=== PATIENT | female | born 1980 | race Caucasian/White ===

== ENCOUNTER → 2020-03-26 15:20 | Outpatient (BNVA) | payer OTHER, SELFPAY | PROVIDERS: PCP Internal Medicine; Visit Provider Internal Medicine Pulmonary Disease | DX: Z76.89 Persons encountering health services in other specified circumstances (principal) | CPT/HCPCS: Q3014 ==

== ENCOUNTER 2020-05-30 15:06 | Outpatient (REF) | payer OTHER, SELFPAY ==
[2020-05-30 16:33] LABS: MANUAL DIFF FLAG NO
[2020-05-30 16:39] LABS: Basophils Percent Auto 0.5 % (0-2); Eosinophils Absolute Auto 0.1 X10*3/uL (0.0-0.4); Eosinophils Percent Auto 1.6 % (0-4); Hematocrit 39.4 % (37-47); Hemoglobin 13.6 g/dl (12.0-16.0); Imm Gran Abs Auto 0.03 X10*3/uL (0.00-0.03); Imm Gran Pct Auto 0.4 % (0.0-0.4); Lymphocytes Absolute Auto 2.2 X10*3/uL (1.2-4.9); Lymphocytes Percent Auto 27.7 % (20-40); Mean Corpuscular HGB Conc 34.5 g/dl (31.0-35.0); Mean Corpuscular Hemoglobin 32.2 pg (27.0-33.0); Mean Corpuscular Volume 93.4 fL (80-98); Mean Platelet Volume 10.8 fL (9.4-12.3); Monocytes Absolute Auto 0.8 X10*3/uL (0.1-1.2); Neutrophils Absolute Auto 4.8 X10*3/uL (2.0-8.3); Neutrophils Percent Auto 59.8 % (45-73); Platelet Count 226 X10*3/uL (160-400); Red Blood Count 4.22 X10*6/uL (4.20-5.50); Red Cell Distribution Width 12.2 % (11.0-16.0)
== END 2020-05-30 15:07 | disposition home or self-care (01) ==
LOC: HO.LAB 15:06
PROVIDERS: PCP Internal Medicine; Visit Provider Internal Medicine Pulmonary Disease
DX: J45.991 Cough variant asthma (principal); Z79.899 Other long term (current) drug therapy
CPT/HCPCS: 36415; 82785; 85025; 86003; 99212

== ENCOUNTER 2020-06-07 12:34 | Emergency (ER) | payer OTHER, SELFPAY ==
[2020-06-07 12:44] VITALS: BP 139/86; PULSE 78; RESP 12; TEMP 36.8; O2SAT 97; BMI 30.9
--- NOTE | 2020-06-07 13:44 | ED.EXTPRO ---
HPI - Extremity Problem General Chief complaint: Extremity Problem Stated complaint: left arm pain Time Seen by Provider: 06/07/20 13:26 Source: patient Mode of arrival: ambulatory Limitations: no limitations History of Present Illness HPI Narrative: 40 y/o female presenting with left arm pain for the last 10 days. She reports it started after sleeping funny on it and woke up with the pain. It started in her middle forearm and goes up to her biceps. Its described as dull and annoying. She reports falling on ice 5 days ago and it made the pain worse. She thinks she may have torn a muscle. She reports some mild elbow pain but has full ROM. No bruising on her arm and no deformity. No numbness, tingling or weakness. MD Complaint: extremity pain Onset (ago): day(s) (10) Pain Consistency: constant Location: left Severity scale (1-10): 9 Quality: aching and dull Radiation: none Relieving factors: nothing Exacerbating factors: range of motion and palpation Associated symptoms: denies other symptoms Related Data Home Medications Medication Instructions Recorded Confirmed albuterol sulfate 90 mcg/actuation 1 puff INHALATION Q4H PRN g 02/22/20 03/15/20 aerosol inhaler Previous Rx's Medication Instructions Recorded codeine 10 mg-guaifenesin 100 mg/5 5 ml PO Q6H PRN 10 Days #120 ml 03/26/ mL oral liquid fluticasone propionate 220 1 puff INHALATION BID 30 Days #1 ea 03/26/ mcg/actuation HFA aerosol inhaler omeprazole 20 mg capsule,delayed 20 mg PO DAILY #90 cap 05/24/20 release prednisone 10 mg tablet See Rx Instructions PO DAILY 15 06/04/20 Days #50 tab Allergies Allergy/AdvReac Type Severity Reaction Status Date / Time mold [MOLD] Allergy Intermediate HIVES Verified 06/07/20 12:44 milk [MILK] Allergy Unknown UNKNOWN Verified 06/07/20 12:44 Review of Systems Review of Systems: Constitutional: No Fever, No Chills ENT/Mouth: No sore throat, No Rhinorrhea, No Swallowing Difficulty Cardiovascular: No Chest Pain, No SOB Respiratory: + Cough, No Sputum Gastrointestinal: No Nausea, No Vomiting Musculoskeletal: + joint pain, + Myalgias Skin: No Skin Lesions, No rash Neuro: No Weakness, No Numbness, No Dizziness, No Headache Heme/Lymph: No Bruising PMFSH Past Medical History Attestation statement: The following information was validated with the patient. Medical History Heart burn Surgical History History of open reduction and internal fixation (ORIF) procedure S/P hardware removal Family History Family History Brother Depression Social History Social History (Updated 03/26/20 @ 15:21 by Danni Morris MA) Smoking Status: Never smoker Advance Directives: Yes Advance Directives Information Provided: Yes Advance Directives on File: No Physical Exam Vital Signs: Vital Signs: Last Vital Signs Temp 98.2 F 06/07/20 12:44 Pulse 78 06/07/20 12:44 Resp 12 06/07/20 12:44 BP 139/86 06/07/20 12:44 Pulse Ox 97 06/07/20 12:44 Body Mass Index 30.9 Appearance: Alert. Oriented X3. No acute distress. HEENT: normal inspection CVS: Normal heart rate and rhythm. Pulses normal. Respiratory: No respiratory distress. Skin: Skin warm and dry. Normal skin color. Normal skin turgor. No rashes. Extremities: normal inspection of bilateral arms. left arm with tenderness of dorsal muscle compartments, soft. tenderness of central bicep. no ecchymosis, no palpable cords or masses. Full ROM and normal strength bilaterally. No point tenderness of the elbow. Normal shoulder ROM. Neuro: Oriented X 3. No motor deficit. No sensory deficit. Steady gait Course Course Course Narrative: 40 y/o female presenting with left arm pain. Seems muscular in nature with tenderness of muscle compartments and worsening pain with movement. She has no evidence of muscle or tendon rupture on exam. She has not taken anything for pain. She is refusing an x-ray at this time, saying nothing is wrong with the bones. We discussed management of muscle strains and she would like to start a trial of NSAID and wear a sling for comfort. Once sling applied she felt much better. She will follow up with her PCP next week. instructed to return to ER if symptoms worsen. Critical Care Time Critical Care Time Critical Care Time: No Discharge Plan Discharge Clinical Impression: Arm pain, left Patient Disposition: Home, Self-Care Instructions: Arm Pain (ED) Additional Instructions: Wear the sling as needed for comfort. No lifting with your left arm. Take the prescribed anti-inflammatory medication two times per day. Take Tylenol 975 mg every 6 hours. Use ice several times per day for the next 48 hours then switch to heat. Follow up with your doctor next week. If no improvement in the pain or if symptoms worsen come back to the ER for further evaluation. Prescriptions: No Action omeprazole 20 mg capsule,delayed release(DR/EC) 20 mg PO DAILY Qty: 90 RF: 0 prednisone 10 mg tablet See Rx Instructions PO DAILY 15 Days Qty: 50 RF: 0 albuterol sulfate 90 mcg/actuation HFA aerosol inhaler 1 puff inhalation Q4H PRNRF: 0 Flovent HFA 220 mcg/actuation HFA aerosol inhaler 1 puff inhalation BID 30 Days Qty: 1 RF: 6 codeine-guaifenesin 10-100 mg/5 mL liquid 5 ml PO Q6H PRN (Reason: cold symptoms) 10 Days Qty: 120 RF: 0 Interventions: ED Discharge Assessment Last Done: 06/07/20 14:03 Discharge Date/Time: 06/07/20 14:03
== END 2020-06-07 14:03 | disposition home or self-care (01) ==
PROVIDERS: Emergency Provider Emergency Medicine; PCP Internal Medicine
DX: M79.602 Pain in left arm (principal)
CPT/HCPCS: 99283

== ENCOUNTER → 2020-07-15 13:10 | Outpatient (BNVA) | payer OTHER, SELFPAY | PROVIDERS: PCP Internal Medicine; Visit Provider Physician Assistant | DX: Z13.89 Encounter for screening for other disorder (principal) | CPT/HCPCS: Q3014 ==

== ENCOUNTER 2020-07-29 12:14 | Outpatient (REF) | payer OTHER, SELFPAY ==
--- NOTE | ~2020-07-29 | XR_ITS ---
EXAMINATION: WRIST 3 VIEWS, LEFT CLINICAL INFORMATION: Left wrist pain. COMPARISON: None. TECHNIQUE: AP, lateral, oblique views of the left wrist are provided. FINDINGS: There are no fractures or dislocations. There is no displacement of the pronator fat pad. The proximal carpal row is intact. XR/XR wrist LT min 3V IMPRESSION: Unremarkable left wrist radiographs.
== END 2020-07-29 12:15 | disposition home or self-care (01) ==
LOC: HO.HMGCX 12:14
PROVIDERS: PCP Internal Medicine; Visit Provider Hospitalist
DX: M25.532 Pain in left wrist (principal)
CPT/HCPCS: 73110

== ENCOUNTER 2020-08-27 15:05 | Outpatient (REF) | payer OTHER, SELFPAY ==
--- NOTE | ~2020-08-27 | XR_ITS ---
EXAMINATION: LEFT ELBOW AND LEFT HAND X-RAY CLINICAL INFORMATION: Pain COMPARISON: None TECHNIQUE: 3 views of the left elbow and 3 views of the left hand FINDINGS: Left elbow: Bone alignment is normal. No fracture or dislocation is seen. Joint spaces are normal. There is no joint effusion. Left hand: Bone alignment is normal. No fracture or dislocation is seen. Joint spaces and soft tissues are normal. XR/XR hand LT min 3V IMPRESSION: Unremarkable left elbow and left hand.
--- NOTE | ~2020-08-27 | XR_ITS ---
EXAMINATION: LEFT ELBOW AND LEFT HAND X-RAY CLINICAL INFORMATION: Pain COMPARISON: None TECHNIQUE: 3 views of the left elbow and 3 views of the left hand FINDINGS: Left elbow: Bone alignment is normal. No fracture or dislocation is seen. Joint spaces are normal. There is no joint effusion. Left hand: Bone alignment is normal. No fracture or dislocation is seen. Joint spaces and soft tissues are normal. XR/XR elbow LT min 3V IMPRESSION: Unremarkable left elbow and left hand.
== END 2020-08-27 15:06 | disposition home or self-care (01) ==
LOC: HO.HOSX 15:05
PROVIDERS: PCP Internal Medicine; Visit Provider Orthopaedic Surgery
DX: M79.642 Pain in left hand (principal); M25.532 Pain in left wrist; M25.522 Pain in left elbow
CPT/HCPCS: 73080; 73130; 99202

== ENCOUNTER → 2021-04-10 14:59 | Outpatient (BNVA) | payer OTHER, SELFPAY | PROVIDERS: PCP Internal Medicine; Visit Provider Internal Medicine Pulmonary Disease | DX: J45.909 Unspecified asthma, uncomplicated (principal); R05.9 Cough, unspecified; Z91.19 Patient's noncompliance with other medical treatment and regimen | CPT/HCPCS: 99212 ==

== ENCOUNTER → 2021-05-07 15:08 | Outpatient (BNVA) | payer OTHER, SELFPAY | PROVIDERS: PCP Internal Medicine; Visit Provider Internal Medicine Pulmonary Disease | DX: J45.901 Unspecified asthma with (acute) exacerbation (principal); R05.9 Cough, unspecified; Z79.899 Other long term (current) drug therapy | CPT/HCPCS: 99212 ==

== ENCOUNTER 2021-05-28 13:55 | Outpatient (REF) | payer OTHER, SELFPAY ==
--- NOTE | ~2021-05-28 | XR_ITS ---
EXAMINATION: XR chest 2V CLINICAL INFORMATION: Reason for Exam R05 - Cough COMPARISON: Chest radiograph 11/12/2019 TECHNIQUE: 2 views of the chest XR/XR chest 2V FINDINGS/IMPRESSION: Clear lungs. No pneumothorax. No pleural effusion. Normal cardiomediastinal silhouette.
== END 2021-05-28 13:56 | disposition home or self-care (01) ==
LOC: HO.XRAY 13:55
PROVIDERS: Visit Provider Internal Medicine Pulmonary Disease
DX: R05.9 Cough, unspecified (principal)
CPT/HCPCS: 71046

== ENCOUNTER 2021-06-09 15:26 | Outpatient (REF) | payer OTHER, SELFPAY ==
--- NOTE | ~2021-06-09 | CT_ITS ---
EXAMINATION: CT CHEST WITHOUT CONTRAST CLINICAL INFORMATION: Cough COMPARISON: Previous chest x-ray most recent May 2021 TECHNIQUE: Multidetector volumetric CT imaging of the chest was done. Axial MIP volume rendering provided. Sagittal and coronal reformatted images were obtained. This CT examination was performed using dose optimization techniques as appropriate, variously including the following: *Automated exposure control *Adjustment of mA and/or kV according to patient size (this includes techniques or standardized protocols for targeted exams where dose is matched to indication/reason for exam; i.e. extremities or head) *Use of iterative reconstruction technique DLP: 181 mGy-cm FINDINGS: CURRICULUM DEVELOPER: Unremarkable LUNGS: There is a 3 mm peripheral or subpleural left lower lobe nodule axial image 335 series 8. The lungs are otherwise clear. No endobronchial or endotracheal lesion. No evidence of emphysema interstitial lung disease or bronchiectasis. MEDIASTINUM: The mediastinum is normal. PLEURA: There is no pleural effusion. No pleural mass or thickening. AXILLA: No lymphadenopathy. There is a small nodule in subcutaneous fat over the left upper back and shoulder measuring axial image 2 series 3. UPPER ABDOMEN: Unremarkable. OSSEOUS STRUCTURES: Unremarkable. CT/CT chest wo con IMPRESSION: 3 mm left lower lobe nodule. According to the UPDATED 2017 Fleischner Society recommendations, the advised follow-up imaging for less than 6 mm nodule: Low risk, no chest CT follow-up and high risk, optional chest CT follow-up in one year. Fleischner guidelines were followed.
== END 2021-06-09 15:27 | disposition home or self-care (01) ==
LOC: HO.CT 15:26
PROVIDERS: Visit Provider Internal Medicine Pulmonary Disease
DX: R05.9 Cough, unspecified (principal)
CPT/HCPCS: 71250

== ENCOUNTER → 2021-08-21 15:36 | Outpatient (BNVA) | payer OTHER, SELFPAY | PROVIDERS: PCP Internal Medicine; Visit Provider Internal Medicine Pulmonary Disease | DX: J45.909 Unspecified asthma, uncomplicated (principal); R05.9 Cough, unspecified | CPT/HCPCS: Q3014 ==

== ENCOUNTER 2021-12-03 17:29 | Emergency (ER) | payer OTHER, SELFPAY ==
[2021-12-03 18:03] VITALS: BP 145/92; PULSE 86; RESP 18; TEMP 36.9; O2SAT 98; BMI 29.2
--- NOTE | 2021-12-03 18:35 | ED.GENADULT ---
HPI - General Adult General Chief complaint: Skin/Abscess/Foreign Body Stated complaint: back surgery 11/26 ? incision infection ,drng Time Seen by Provider: 12/03/21 18:35 Source: patient Mode of arrival: ambulatory Limitations: no limitations History of Present Illness HPI narrative: Patient is a 41 year old female presenting to the emergency department today with a surgical incision infection. Patient states that she had a mole removed from her lower back by [facility] a couple days ago and now it is hurting and is leaking. Patient states that she doesn't have follow up with the original surgeon until 12/11. Patient denies any dizziness, lightheadedness, abdominal pain, nausea, vomiting, fever, chills, blurry vision, double vision, loss of vision, chest pain, difficulty breathing, shortness of breath, back pain, night sweats, pain with urination, increased urinary frequency, increased urinary urgency, blood in her urine or stool, syncope or a near syncopal episode, bowel incontinence, bladder incontinence, bowel retention, bladder retention, or any other complaints at this time. Onset (ago): day(s) Location: back Radiation: non-radiation Severity: mild Severity scale (1-10): 2 Quality: aching and constant Pain Consistency: constant Relieving factors: none Exacerbating factors: none Associated symptoms: denies other symptoms Treatments prior to arrival: none Related Data Previous Rx's Medication Instructions Recorded ibuprofen 600 mg tablet 600 mg PO TID PRN pain #30 tabs 07/27/20 fluticasone furoate 200 1 inh inhalation DAILY 30 days #1 04/10/21 mcg-vilanterol 25 mcg/dose ea inhalation powder (Breo Ellipta) albuterol sulfate 90 mcg/actuation 2 puff inhalation Q4H PRN 05/07/21 aerosol inhaler shortness of breath or wheezing 30 days #1 ea omeprazole 10 mg capsule,delayed 10 mg PO DAILY 30 days #30 caps 11/19/21 release cephalexin 500 mg capsule 500 mg PO Q6H 7 days #28 caps 12/03/21 Allergies Allergy/AdvReac Type Severity Reaction Status Date / Time mold [MOLD] Allergy Intermediate HIVES Verified 08/21/21 15:37 milk [MILK] Allergy Unknown UNKNOWN Verified 08/21/21 15:37 Review of Systems Constitutional: Constitutional: Reports no additional constitutional complaints, Denies chills, Denies fever(s) and Denies night sweats Eyes: Eyes: Reports no additional eye complaints, Denies blurry vision, Denies change in vision, Denies diplopia, Denies eye discharge, Denies loss of vision and Denies eye pain ENT: Denies dizziness Cardiovascular: Cardiovascular: Reports no additional cardiovascular complaints, Denies chest pain, Denies lightheadedness, Denies Loss of Consciousness and Denies dyspnea Respiratory: Respiratory: Reports no additional respiratory complaints and Denies dyspnea Gastrointestinal: Gastrointestinal: Reports no additional gastrointestinal complaints, Denies abdominal pain, Denies melena, Denies hematochezia, Denies change in bowel habits and Denies change in stool character Genitourinary: Genitourinary: Denies hematuria, Denies urinary frequency, Denies dysuria, Denies urinary incontinence, Denies urinary hesitancy and Denies urinary urgency Musculoskeletal: Musculoskeletal: Reports no additional musculoskeletal complaints, Denies numbness and Denies tingling Integumentary/Breasts: Comments: leaking incision site on low back Neurologic: Denies dizziness, Denies loss of vision, Denies numbness and Denies tingling Psychiatric: Psychiatric: Reports no additional psychiatric complaints Endocrine: Endocrine: Reports no additional endocrine complaints Hematologic/Lymphatic: Hematologic/Lymphatic: Reports no additional hematologic/lymphatic complaints Allergic/Immunologic: Allergic/Immunologic: Reports no additional allergic/immunologic complaints PMF Past Medical History Attestation statement: The following information was validated with the patient. Source: old records reviewed Medical History Heart burn Surgical History History of open reduction and internal fixation (ORIF) procedure S/P hardware removal Family History Family History Brother Depression Social History Social History Household Members: None Housing: Apartment Alcohol intake: current Alcohol intake frequency: a few times a month Patient Tobacco Use Status: Never used Tobacco Second Hand Smoke Exposure: Yes Advance Directives: No Advance Directives Information Provided: No Current occupational status: disabled Physical Exam ED Vital Signs: Vital Signs - 24 hr 12/03/21 18:03 Temperature 98.4 F Pulse Rate 86 Respiratory Rate 18 Blood Pressure 145/92 H Pulse Oximetry 98 Oxygen Delivery Method Room Air BMI result Body Mass Index 29.2 Const General: cooperative, no acute distress, alert and awake Nutritional Appearance: well nourished Orientation/consciousness: patient oriented x3 Limitations: no limitations HENMT Head: Yes normal to inspection and Yes atraumatic Ears: hearing grossly normal bilaterally and external ears normal General nose exam: Normal external nose present, no nasal discharge noted and no epistaxis Face and sinus: Yes normal facial exam, No abrasion and No laceration Mouth: Normal oral and palatal mucosa present, no drooling and no muffled voice Eyes General: appearance normal, both eyes and all related structures Periorbital: periorbital findings normal Eyelids: Yes eyelids normal Conjunctivae: conjunctivae normal Pupils: Equal, round and reactive pupils present EOM: EOMs intact bilaterally Neck Neck: Yes normal visual inspection, Yes full ROM and Yes no lymphadenopathy Chest Chest palpation & inspection: normal inspection of the chest Resp Effort & Inspection: normal respiratory effort and able to speak in complete sentences Auscultation: clear to auscultation bilaterally Cardio Rate: regular rate Rhythm: regular rhythm GI Inspection: Yes normal to inspection Back/Spine/Pelvis Other: present on low back: non-healing surgical incision with 1cm gaping area on the medial aspect and 0.25cm gaping area on the lateral aspect, surrounding erythema and warmth, no discharge noted Neuro General: patient oriented x3 and moves all extremities Cranial nerves: Yes Equal, round and reactive pupils present Cognition (Neuro): normal cognition Motor exam (neuro): 5/5 motor strength present throughout Sensory Exam: Normal double simultaneous stimulation for sensation Coordination: [id number] test normal Extrem General: Yes normal to inspection, Yes full ROM and Yes capillary refill normal Psych Appearance: grossly normal Mental Status: mental status grossly normal Affect: normal affect Attitude: cooperative Thought process: Normal thought process present Thought content: Normal thought content present Insight: Good insight present (Psych) Medical Decision Making MDM Narrative Medical decision making narrative: Patient is a 41 year old female presenting to the emergency department today with an infected surgical incision. Patient's physical exam was as noted previously in this chart with a non-healing surgical incision to the patient's low back with a 1cm gaping area to the medial aspect of the incision and a 0.25 gaping area to the lateral aspect of the patient's incision. There was surrounding erythema and warmth of the incision but no drainage present. I explained my physical exam findings to the patient. I answered all questions asked by the patient. I stressed the importance of the patient taking her medication as prescribed. I stressed the importance of the patient following up with her primary care provider, the provider who performed the initial procedure, and the wound center. I stressed the importance of the patient returning to the emergency department immediately if her symptoms were to worsen or if she were to develop any dizziness, shortness of breath, difficulty breathing, chest pain, blurry vision, loss of vision, nausea, vomiting, abdominal pain, fever, chills, back pain, or any other complaints. Patient verbalized agreement and understanding with this treatment plan and discharge. Differential Diagnosis Differential Diagnosis: cellulitis, surgical incision infection Medical Records Medical records reviewed: Yes I reviewed the patient's medical records. Discharge Plan Discharge Clinical Impression: Cellulitis Patient Disposition: Home, Self-Care Instructions: Cellulitis (ED) Additional Instructions: Follow up with your primary care provider, the provider who performed the procedure, and the wound center. Return to the emergency department immediately if your symptoms worsen or if you develop any dizziness, shortness of breath, difficulty breathing, chest pain, blurry vision, loss of vision, nausea, vomiting, abdominal pain, fever, chills, back pain, or any other complaints. Prescriptions: New cephalexin 500 mg capsule 500 mg PO Q6H 7 Days Qty: 28 0RF No Action omeprazole 10 mg capsule,delayed release(DR/EC) 10 mg PO DAILY 30 Days Qty: 30 0RF ibuprofen 600 mg tablet 600 mg PO TID PRN (Reason: pain) Qty: 30 0RF Breo Ellipta 200-25 mcg/dose blister with device 1 inh inhalation DAILY 30 Days Qty: 1 6RF albuterol sulfate 90 mcg/actuation HFA aerosol inhaler 2 puff inhalation Q4H PRN (Reason: shortness of breath or wheezing) 30 Days Qty: 1 6RF [place] [facility] [place] [facility] [place] (Call to establish and follow up with a primary care provider. If you already have a primary care provider, please call and follow up with them. ) [facility] [place] [facility] [place] (Call to establish and follow up with a primary care provider. If you already have a primary care provider, please call and follow up with them. ) [facility] [place] [facility] [place]] (Call to establish and follow up with a primary care provider. If you already have a primary care provider, please call and follow up with them. ) [facility] [place] [facility] [place]] (Call to establish and follow up with the wound care center. ) Print Language: [place]
== END 2021-12-03 19:25 | disposition home or self-care (01) ==
PROVIDERS: Emergency Provider Emergency Medicine
DX: L03.312 Cellulitis of back [any part except buttock and flank] (principal); M54.50 Low back pain, unspecified; Z79.899 Other long term (current) drug therapy
CPT/HCPCS: 99281

== ENCOUNTER → 2022-02-09 14:28 | Outpatient (BNVA) | payer OTHER, SELFPAY | PROVIDERS: PCP Internal Medicine; Visit Provider Internal Medicine Pulmonary Disease | DX: J45.909 Unspecified asthma, uncomplicated (principal); R05.9 Cough, unspecified | CPT/HCPCS: Q3014 ==

== ENCOUNTER → 2022-03-05 13:04 | Outpatient (BNVA) | payer OTHER, SELFPAY | PROVIDERS: PCP Internal Medicine; Visit Provider Internal Medicine Pulmonary Disease | DX: J45.998 Other asthma (principal); R05.9 Cough, unspecified | CPT/HCPCS: 99212 ==

== ENCOUNTER → 2022-03-10 09:01 | Outpatient (BNVA) | payer OTHER, SELFPAY | PROVIDERS: PCP Internal Medicine; Visit Provider Internal Medicine Pulmonary Disease | DX: J45.909 Unspecified asthma, uncomplicated (principal); R05.8 Other specified cough | CPT/HCPCS: Q3014 ==

== ENCOUNTER → 2022-06-30 15:32 | Outpatient (BNVA) | payer OTHER, SELFPAY | PROVIDERS: PCP Internal Medicine; Visit Provider Internal Medicine Pulmonary Disease | DX: J45.991 Cough variant asthma (principal); K21.9 Gastro-esophageal reflux disease without esophagitis; Z79.52 Long term (current) use of systemic steroids | CPT/HCPCS: 99212 ==

== ENCOUNTER → 2022-07-28 14:24 | Outpatient (BNVA) | payer OTHER, SELFPAY | PROVIDERS: PCP Internal Medicine; Visit Provider Internal Medicine Pulmonary Disease | DX: J45.909 Unspecified asthma, uncomplicated (principal); R05.3 Chronic cough | CPT/HCPCS: Q3014 ==

== ENCOUNTER 2022-12-09 11:09 | Outpatient (AMB) | payer OTHER, SELFPAY ==
--- NOTE | 2022-12-09 11:10 | MHC.OFFVIS ---
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 Patient states that her GERD symptoms have been well controlled on per. At her environmental allergies have not bothered her over last few months, thus she did not use Aixa, Benadryl, Flonase. Her asthma symptoms also well controlled on Breo, Combivent, and as needed albuterol MDI/DuoNeb. She denies recent exacerbations. [facility] Medical History Heart burn Surgical History History of open reduction and internal fixation (ORIF) procedure S/P hardware removal Family History Brother Depression Social History Household Members: None Housing: Apartment Alcohol intake: current Alcohol intake frequency: a few times a month Patient Tobacco Use Status: Never used Tobacco e-Cigarette/Vaping Use: Never Used Second Hand Smoke Exposure: Yes service: No Current occupational status: disabled Cognitive needs: No Hearing needs: No Vision needs: No Review of Systems Const Denies daytime sleepiness, Denies excessive sweating, Denies fatigue, Denies fever(s), Denies lethargy, Denies malaise, Denies night sweats, Denies snoring and Denies weight loss Eyes Denies blurry vision and Denies itchy eyes ENT Denies nasal congestion, Denies post nasal drip, Denies sinus pain, Denies sinus pressure and Denies other ( Thrush) Card Denies chest pain, Denies pedal edema, Denies dyspnea, Denies orthopnea and Denies paroxysmal nocturnal dyspnea Resp Denies cough, Denies hemoptysis, Denies excessive phlegm production, Denies dyspnea, Denies snoring and Denies wheezing GI Denies abdominal pain and Denies heartburn Musc Denies myalgias, Denies arthralgias and Denies joint swelling Skin/Breast Denies rash Neuro Denies memory loss and Denies seizure-like activity Psych Denies abnormal sleep pattern, Denies anxiety and Denies memory loss Endo Denies excessive sweating, Denies fatigue and Denies heat intolerance Panfilo/Lymph Denies easy bruising Aller/Immun Denies itchy eyes, Denies seasonal rhinorrhea and Denies wheezing Assessment & Plan Assessment & Plan (1) Asthma: Code(s): J45.909 - Unspecified asthma, uncomplicated Plan: Well controlled on Breo, Combivent, albuterol MDI/duo nebs. Continue current regimen. (2) Allergic rhinitis: Code(s): J30.9 - Allergic rhinitis, unspecified Plan: No recent exacerbations. Continues on as needed Flonase, Aixa, and Benadryl. (3) Chronic cough: Code(s): R05.3 - Chronic cough Plan: No recent exacerbations. (4) GERD (gastroesophageal reflux disease): Code(s): K21.9 - Gastro-esophageal reflux disease without esophagitis Plan: Well controlled on b.i.d. omeprazole 40 mg. Continue current regimen. Coding Level of Care Code Tele Est Pt Level 4 (28305) Diagnoses Asthma J45.909 Allergic rhinitis J30.9 Chronic cough R05.3 GERD (gastroesophageal reflux disease) K21.9 Time Spent (min) 20
== END 2022-12-09 11:29 | disposition home or self-care (01) ==
LOC: HO.HPS 11:10
PROVIDERS: PCP Internal Medicine; Visit Provider Internal Medicine Pulmonary Disease
DX: J45.909 Unspecified asthma, uncomplicated (principal); J30.9 Allergic rhinitis, unspecified; R05.3 Chronic cough; K21.9 Gastro-esophageal reflux disease without esophagitis
CPT/HCPCS: 99213

== ENCOUNTER → 2022-12-09 11:09 | Outpatient (BNVA) | payer OTHER, SELFPAY | PROVIDERS: PCP Internal Medicine; Visit Provider Internal Medicine Pulmonary Disease ==

== ENCOUNTER 2023-02-22 10:04 | Outpatient (AMB) | payer OTHER, SELFPAY ==
[2023-02-22 10:11] VITALS: BP 118/60; PULSE 71; O2SAT 97; BMI 27.5
--- NOTE | 2023-02-22 10:11 | MHC.OFFVIS ---
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 The patient is a 43-year-old woman with a known history of asthma she started developing worsening respiratory symptoms for the last few weeks. She complains of cough usually chest congestion. Although she is no longer bringing up significant amount of mucus. Moderate severity. She has been using her inhaler multiple times a day with only partial resolution of the symptoms. On examination she does have some active coughing. But she is moving good air with diminished breath sounds no significant inspiratory expiratory wheezing appreciated. No rhonchi or crackles appreciated. The patient is requesting codeine cough syrup. At this point under hold off on that because I do not know her medical history. Although outside dextro more fun to see if that provides her some relief. The patient will start a course of antibiotics and prednisone to see if that also provides some relief. I did recommend she call the office if she is no better. [facility] Medical History Heart burn Surgical History History of open reduction and internal fixation (ORIF) procedure S/P hardware removal Family History Brother Depression Social History Household Members: None Housing: Apartment Alcohol intake: current Alcohol intake frequency: a few times a month Patient Tobacco Use Status: Never used Tobacco e-Cigarette/Vaping Use: Never Used Second Hand Smoke Exposure: Yes service: No Current occupational status: disabled Cognitive needs: No Hearing needs: No Vision needs: No Review of Systems Const Denies daytime sleepiness, Denies excessive sweating, Denies fatigue, Denies fever(s), Denies lethargy, Denies malaise, Denies night sweats, Denies snoring and Denies weight loss Eyes Denies blurry vision and Denies itchy eyes ENT Denies nasal congestion, Denies post nasal drip, Denies sinus pain, Denies sinus pressure and Denies other ( Thrush) Card Denies chest pain, Denies pedal edema, Denies dyspnea, Denies orthopnea and Denies paroxysmal nocturnal dyspnea Resp Reports chest congestion, Reports cough, Denies hemoptysis, Denies excessive phlegm production, Denies dyspnea, Denies snoring and Reports wheezing GI Denies abdominal pain and Denies heartburn Musc Denies myalgias, Denies arthralgias and Denies joint swelling Skin/Breast Denies rash Neuro Denies memory loss and Denies seizure-like activity Psych Denies abnormal sleep pattern, Denies anxiety and Denies memory loss Endo Denies excessive sweating, Denies fatigue and Denies heat intolerance Panfilo/Lymph Denies easy bruising Aller/Immun Denies itchy eyes, Denies seasonal rhinorrhea and Reports wheezing Physical Exam Vital Signs: Last Vital Signs Pulse 71 02/22/23 10:11 BP 118/60 02/22/23 10:11 Pulse Ox 97 02/22/23 10:11 Oxygen Delivery Method Room Air 02/22/23 10:11 BMI result Body Mass Index 27.5 Const General: no acute distress and alert Nutritional Appearance: not obese Orientation/consciousness: Other orientation findings ( oriented) HEENT Head: Yes atraumatic Mouth: no other ( thrush) Throat: No postnasal drainage Eyes General: appearance normal, both eyes and all related structures Sclerae: sclerae normal EOM: EOMs intact bilaterally Neck Neck: Yes supple Lymphatic: no lymphadenopathy noted Resp Effort & Inspection: Actively coughing Quality: actively coughing and no use of accessory muscles Auscultation: diminished lung sounds Cardio Rate: regular rate Rhythm: regular rhythm Heart sounds: no gallops, no murmurs and no rubs GI Palpation (GI): Soft to palpation and Other GI palpation findings present ( nontender) Skin General skin exam: other ( warm) Rashes: no rashes Extrem General: No clubbing, No cyanosis and No edema Assessment & Plan Assessment & Plan (1) Asthma: Code(s): J45.909 - Unspecified asthma, uncomplicated Qualifiers: Asthma severity: moderate Asthma persistence: persistent Asthma complication type: with acute exacerbation Qualified Code(s): J45.41 - Moderate persistent asthma with (acute) exacerbation (2) Bronchitis: Code(s): J40 - Bronchitis, not specified as acute or chronic Plan Start Prednisone start Zpack Start Robitussin DM continue respiratory therapy Call if no better Medications: New prednisone PO daily; Take 2 tabs daily x 5 days, then 1 tablet daily x 5 days 10 days 15 tabs 0RF azithromycin 500 mg PO DAILY 5 days 5 tabs 0RF dextromethorphan-guaifenesin 10-100 mg/5 mL 10 mL PO Q6H 14 days PRN 500 mL 5RF cough Refilled ipratropium-albuterol 20-100 mcg/actuation (Combivent Respimat) 1 puff inhalation Q4H 30 days 4 grams 6RF Coding Level of Care Code Est Pt Level 4 (70614) Diagnoses Moderate persistent asthma with acute exacerbation J45.41 Asthma severity: moderate Asthma persistence: persistent Asthma complication type: with acute exacerbation Bronchitis J40 Time Spent (min) 16
== END 2023-02-22 10:31 | disposition home or self-care (01) ==
PROVIDERS: PCP Internal Medicine; Visit Provider Hospitalist
DX: J45.41 Moderate persistent asthma with (acute) exacerbation (principal); J40 Bronchitis, not specified as acute or chronic
CPT/HCPCS: 99214

== ENCOUNTER → 2023-02-22 10:04 | Outpatient (BNVA) | payer OTHER, SELFPAY | PROVIDERS: PCP Internal Medicine; Visit Provider Hospitalist | DX: J45.41 Moderate persistent asthma with (acute) exacerbation (principal); J40 Bronchitis, not specified as acute or chronic | CPT/HCPCS: 99212 ==

== ENCOUNTER 2023-03-09 13:52 | Outpatient (AMB) | payer OTHER, SELFPAY ==
[2023-03-09 13:54] VITALS: BP 126/80; PULSE 89; O2SAT 99; BMI 28.6
--- NOTE | 2023-03-09 13:54 | A.OFFVIS_ITS ---
Intake Vital Signs 03/09/23 13:54 Height 5 ft 4 in Weight 166 lb 7.184 oz BMI 28.6 BP 126/80 Blood Pressure Location Rt brachial Position Sitting Pulse 89 Pulse Source Doppler Pulse Oximetry (%) 99 Oxygen Delivery Method Room Air Intake Visit Reasons: cough Allergies mold [MOLD] Allergy (Intermediate, Verified 03/09/23 13:56) HIVES milk [MILK] Allergy (Unknown, Verified 03/09/23 13:56) UNKNOWN HPI cough HPI Details 43-year-old lady, nonsmoker, with likely underlying cough variant asthma, followed up for cough variant asthma and GERD.? Patient states that her GERD symptoms have been well controlled on PPI. Her asthma symptoms also well controlled on Breo, Combivent, and as needed albuterol MDI/DuoNeb at the baseline. Patient does complain of an ongoing exacerbation with poor response to initial course of azithromycin prednisone. [facility] Medical History Heart burn Surgical History History of open reduction and internal fixation (ORIF) procedure S/P hardware removal Family History Brother Depression Social History Household Members: None Housing: Apartment Alcohol intake: current Alcohol intake frequency: a few times a month Patient Tobacco Use Status: Never used Tobacco e-Cigarette/Vaping Use: Never Used Second Hand Smoke Exposure: Yes service: No Current occupational status: disabled Cognitive needs: No Hearing needs: No Vision needs: No Review of Systems Const Denies daytime sleepiness, Denies excessive sweating, Denies fatigue, Denies fever(s), Denies lethargy, Denies malaise, Denies night sweats, Denies snoring and Denies weight loss Eyes Denies blurry vision and Denies itchy eyes ENT Denies nasal congestion, Denies post nasal drip, Denies sinus pain, Denies sinus pressure and Denies other ( Thrush) Card Denies chest pain, Denies pedal edema, Denies dyspnea, Denies orthopnea and Denies paroxysmal nocturnal dyspnea Resp Reports cough, Denies hemoptysis, Denies excessive phlegm production, Denies dyspnea, Denies snoring and Reports wheezing GI Denies abdominal pain and Denies heartburn Musc Denies myalgias, Denies arthralgias and Denies joint swelling Skin/Breast Denies rash Neuro Denies memory loss and Denies seizure-like activity Psych Denies abnormal sleep pattern, Denies anxiety and Denies memory loss Endo Denies excessive sweating, Denies fatigue and Denies heat intolerance Panfilo/Lymph Denies easy bruising Aller/Immun Denies itchy eyes, Denies seasonal rhinorrhea and Reports wheezing Physical Exam Vital Signs: Last Vital Signs Pulse 89 03/09/23 13:54 BP 126/80 03/09/23 13:54 Pulse Ox 99 03/09/23 13:54 Oxygen Delivery Method Room Air 03/09/23 13:54 BMI result Body Mass Index 28.6 Const General: no acute distress and alert Nutritional Appearance: not obese Orientation/consciousness: Other orientation findings ( oriented) HEENT Head: Yes atraumatic Eyes General: appearance normal, both eyes and all related structures Sclerae: sclerae normal EOM: EOMs intact bilaterally Neck Neck: Yes supple Lymphatic: no lymphadenopathy noted Resp Effort & Inspection: normal respiratory effort and no use of accessory muscles Auscultation: clear to auscultation bilaterally Cardio Rate: regular rate Rhythm: regular rhythm Heart sounds: no gallops, no murmurs and no rubs Skin General skin exam: other ( warm) Extrem General: No clubbing, No cyanosis and No edema Assessment & Plan Assessment & Plan (1) Asthma: Code(s): J45.909 - Unspecified asthma, uncomplicated Qualifiers: Asthma severity: moderate Asthma persistence: persistent Asthma complication type: with acute exacerbation Qualified Code(s): J45.41 - Moderate persistent asthma with (acute) exacerbation Plan: Baseline controlled on Breo, duo nebs, Combivent, and albuterol MDI. Continue current regimen. (2) Chronic cough: Code(s): R05.3 - Chronic cough Plan: Now with recurrent exacerbation. Poor response to initial course of azithromycin prednisone. Will check for RSV, flu, COVID. Will treat with a course of Levaquin. Will obtain chest x-ray. Orders: Orders XR chest 2V Today J40 - Bronchitis, not specified as acute or chronic SARS-CoV2/FLU/RSV Today J40 - Bronchitis, not specified as acute or chronic Medications: New levofloxacin 750 mg PO DAILY 7 tabs 0RF J40 - Bronchitis, not specified as acute or chronic Refilled codeine-guaifenesin 10-100 mg/5 mL 10 mL PO Q4-6H PRN 473 mL 0RF cough 15 days Discontinued prednisone Discontinued Reason: Doctor's Order 40 mg (2 x 20 mg) PO DAILY 10 tabs 0RF 5 days prednisone Discontinued Reason: Doctor's Order PO daily; Take 2 tabs daily x 5 days, then 1 tablet daily x 5 days 15 tabs 0RF 10 days azithromycin Discontinued Reason: Doctor's Order 500 mg PO DAILY 5 tabs 0RF 5 days Coding Level of Care Code Est Pt Level 4 (68295) Diagnoses Moderate persistent asthma with acute exacerbation J45.41 Asthma severity: moderate Asthma persistence: persistent Asthma complication type: with acute exacerbation Chronic cough R05.3
== END 2023-03-09 15:04 | disposition home or self-care (01) ==
PROVIDERS: PCP Internal Medicine; Visit Provider Internal Medicine Pulmonary Disease
DX: J45.41 Moderate persistent asthma with (acute) exacerbation (principal); R05.3 Chronic cough
CPT/HCPCS: 99214

== ENCOUNTER 2023-03-09 13:52 | Outpatient (REF) | payer OTHER, SELFPAY ==
--- NOTE | ~2023-03-09 | XR_ITS ---
EXAMINATION: XR CHEST CLINICAL INFORMATION: Bronchitis COMPARISON: Chest radiograph from 05/28/2021 TECHNIQUE: 2 views of the chest FINDINGS: Very slight bronchial thickening which can be seen in the setting of infectious/inflammatory etiology. No pneumothorax. Trachea is midline. Cardiac mediastinal silhouette is not enlarged. No large pleural effusion. Osseous structures are intact. Soft tissues are unremarkable. XR/XR chest 2V IMPRESSION: Very slight bronchial thickening which can be seen in the setting of infectious/inflammatory etiology.
== END 2023-03-09 13:53 | disposition home or self-care (01) ==
LOC: HO.XRAY 13:52
PROVIDERS: PCP Internal Medicine; Visit Provider Internal Medicine Pulmonary Disease
DX: J40 Bronchitis, not specified as acute or chronic (principal); J45.41 Moderate persistent asthma with (acute) exacerbation; R05.3 Chronic cough
CPT/HCPCS: 71046; 99212

== ENCOUNTER 2023-03-09 14:13 | Outpatient (REF) | payer OTHER, SELFPAY ==
[2023-03-09 15:57] LABS: Influenza A PCR NEGATIVE (Negative); Influenza B PCR NEGATIVE (Negative); Resp Syncy Virus RNA Qual PCR NEGATIVE (Negative); SARS COV2 PCR INHOUSE NEGATIVE (Negative)
== END 2023-03-09 14:14 | disposition home or self-care (01) ==
LOC: HO.LNP 14:13
PROVIDERS: Visit Provider Internal Medicine Pulmonary Disease
DX: Z11.52 Encounter for screening for COVID-19 (principal); Z20.822 Contact with and (suspected) exposure to COVID-19; J40 Bronchitis, not specified as acute or chronic
CPT/HCPCS: 0241U

== ENCOUNTER 2023-11-20 11:37 | Outpatient (AMB) | payer OTHER, SELFPAY ==
--- NOTE | 2023-11-20 11:58 | MHC.OFFWIV ---
Intake Vital Signs 11/20/23 11:59 Height 5 ft 4 in Weight 167 lb BMI 28.7 BP 122/84 Blood Pressure Location Lt brachial Position Sitting Pulse 88 Pulse Source Pulse Oximeter Temp 98.9 F Temp Source Oral Pulse Oximetry (%) 98 Oxygen Delivery Method Room Air Intake Visit Reasons: EP yeast infection Patient Tobacco Use Status: Never used Tobacco Allergies mold [MOLD] Allergy (Intermediate, Verified 11/20/23 11:58) HIVES milk [MILK] Allergy (Unknown, Verified 11/20/23 11:58) UNKNOWN Do you need a note to return to daycare/school/sports/work: No HPI EP yeast infection HPI Details pt c/o ? yeast infection. Ongoing for a month. (Has white discharge, red bumps and itchiness. States yeast infection testing has been negative. [facility] Medical History Heart burn Surgical History History of open reduction and internal fixation (ORIF) procedure S/P hardware removal Family History Brother Depression Social History Household Members: None Housing: Apartment Alcohol intake: current Alcohol intake frequency: a few times a month Patient Tobacco Use Status: Never used Tobacco e-Cigarette/Vaping Use: Never Used Second Hand Smoke Exposure: Yes service: No Current occupational status: disabled Cognitive needs: No Hearing needs: No Vision needs: No Review of Systems Const Details: See HPI Physical Exam Vital Signs: Last Vital Signs Temp 98.9 F 11/20/23 11:59 Pulse 88 11/20/23 11:59 BP 122/84 11/20/23 11:59 Pulse Ox 98 11/20/23 11:59 Oxygen Delivery Method Room Air 11/20/23 11:59 BMI result Body Mass Index 28.7 Const General: no acute distress and well developed Nutritional Appearance: well nourished Orientation/consciousness: patient oriented x3 HEENT Head: Yes normocephalic and Yes atraumatic Eyes General: appearance normal, both eyes and all related structures Pupils: Equal, round and reactive pupils present EOM: EOMs intact bilaterally Resp Effort & Inspection: normal respiratory effort Other: Exam deferred. Neuro General: patient oriented x3 and gait normal Cranial nerves: Yes Equal, round and reactive pupils present Psych Affect: normal affect Assessment & Plan Assessment & Plan (1) Vaginal discharge: Code(s): N89.8 - Other specified noninflammatory disorders of vagina Plan: Vaginal discharge and she was told she has BV and was given a short course of metronidazole Will give her a 5 day course of metronidazole. Also giving her fluconazole Lastly, she can try boric acid tablets to help adjust pH Return to OBGYN a if not improving Medications: New metronidazole 500 mg PO Q12H 5 days 10 tabs 0RF boric acid 600 mg vaginal DAILY 7 days PRN 7 ea 0RF Vaginal itch / irritation fluconazole 150 mg PO Q3D 2 tabs 0RF Coding Level of Care Code Est Pt Level 3 (39963) Diagnoses Vaginal discharge N89.8
[2023-11-20 11:59] VITALS: BP 122/84; PULSE 88; TEMP 37.2; O2SAT 98; BMI 28.7
== END 2023-11-20 12:50 | disposition home or self-care (01) ==
PROVIDERS: PCP Internal Medicine; Visit Provider Family Medicine
DX: N89.8 Other specified noninflammatory disorders of vagina (principal)
CPT/HCPCS: 99213

== ENCOUNTER 2024-06-30 10:49 | Outpatient (AMB) | payer OTHER, SELFPAY ==
[2024-06-30 11:03] VITALS: BP 117/60; PULSE 84; O2SAT 100; BMI 28.5
--- NOTE | 2024-06-30 11:03 | A.OFFVIS_ITS ---
Vital Signs 06/30/24 11:03 Height 5 ft 4 in Weight 166 lb BMI 28.5 BP 117/60 Blood Pressure Location Rt brachial Position Sitting Pulse 84 Pulse Source Doppler Pulse Oximetry (%) 100 Oxygen Delivery Method Room Air Intake Visit Reasons: Asthma, dry cough Allergies mold [MOLD] Allergy (Intermediate, Verified 06/30/24 11:07) HIVES milk [MILK] Allergy (Unknown, Verified 06/30/24 11:07) UNKNOWN HPI HPI Asthma, dry cough: Details: 43-year-old lady, nonsmoker, with likely underlying cough variant asthma, followed up for cough variant asthma and GERD.? Patient states that her GERD symptoms have been well controlled on PPI. Her asthma symptoms were previously also well controlled on Breo, Combivent, and as needed albuterol MDI/nebs at the baseline. Unfortunately, she has ran out of most of her bronchodilators and her symptoms are not as well controlled. She also complain of acute exacer bation symptomatic with some wheezing and dyspnea. [facility] Medical History Heart burn Surgical History History of open reduction and internal fixation (ORIF) procedure S/P hardware removal Family History Brother Depression Social History Household Members: None Housing: Apartment Alcohol intake: current Alcohol intake frequency: a few times a month Patient Tobacco Use Status: Never used Tobacco e-Cigarette/Vaping Use: Never Used Second Hand Smoke Exposure: Yes service: No Current occupational status: disabled Cognitive needs: No Hearing needs: No Vision needs: No Review of Systems Const Denies daytime sleepiness, Denies excessive sweating, Denies fatigue, Denies fever(s), Denies lethargy, Denies malaise, Denies night sweats, Denies snoring and Denies weight loss Eyes Denies blurry vision and Denies itchy eyes ENT Denies nasal congestion, Denies post nasal drip, Denies sinus pain, Denies sinus pressure and Denies other ( Thrush) Card Denies chest pain, Denies pedal edema, Denies dyspnea, Reports dyspnea on exertion, Denies orthopnea and Denies paroxysmal nocturnal dyspnea Resp Denies cough, Denies hemoptysis, Denies excessive phlegm production, Denies dyspnea, Reports dyspnea on exertion, Denies snoring and Reports wheezing GI Denies abdominal pain and Denies heartburn Musc Denies myalgias, Denies arthralgias and Denies joint swelling Skin/Breast Denies rash Neuro Denies memory loss and Denies seizure-like activity Psych Denies abnormal sleep pattern, Denies anxiety and Denies memory loss Endo Denies excessive sweating, Denies fatigue and Denies heat intolerance Panfilo/Lymph Denies easy bruising Aller/Immun Denies itchy eyes, Denies seasonal rhinorrhea and Reports wheezing Physical Exam Vital Signs: Last Vital Signs Pulse 84 06/30/24 11:03 BP 117/60 06/30/24 11:03 Pulse Ox 100 06/30/24 11:03 Oxygen Delivery Method Room Air 06/30/24 11:03 BMI result Body Mass Index 28.5 Const General: no acute distress and alert Nutritional Appearance: not obese Orientation/consciousness: Other orientation findings ( oriented) HEENT Head: Yes atraumatic Eyes General: appearance normal, both eyes and all related structures Sclerae: sclerae normal EOM: EOMs intact bilaterally Neck Neck: Yes supple Lymphatic: no lymphadenopathy noted Resp Effort & Inspection: normal respiratory effort and no use of accessory muscles Auscultation: clear to auscultation bilaterally Cardio Rate: regular rate Rhythm: regular rhythm Heart sounds: no gallops, no murmurs and no rubs Skin General skin exam: other ( warm) Extrem General: No clubbing, No cyanosis and No edema Assessment & Plan Assessment & Plan (1) Asthma: Code(s): J45.909 - Unspecified asthma, uncomplicated Category: Medical Qualifiers: Asthma severity: moderate Asthma persistence: persistent Asthma complication type: with acute exacerbation Qualified Code(s): J45.41 - Moderate persistent asthma with (acute) exacerbation Plan: Suboptimal control as patient has ran out of her controller medication and now also with an acute exacerbation. Will treat acute exacerbation with a predni sone taper. Restart with right regimen of Breo, Combivent, and albuterol MDI/nebs. Medications: New fluticasone furoate-vilanterol 200-25 mcg/dose (Breo Ellipta) 1 inh inhalation DAILY 1 ea 6RF ipratropium-albuterol 20-100 mcg/actuation (Combivent Respimat) 1 puff inhalation Q4H 4 grams 6RF prednisone Take 4 tabs daily for 7 days, then go down by 1 tab every 7 days 10 mg PO DIRECTED 70 tabs 0RF albuterol sulfate 90 mcg/actuation (Ventolin HFA) 2 puffs inhalation Q4-6H PRN 1 ea 6RF shortness of breath or wheezing Refilled albuterol sulfate 90 mcg/actuation 2 puffs inhalation Q4H PRN 1 ea 6RF shortness of breath or wheezing 30 days Coding Level of Care Code Est Pt Level 3 (36061) Diagnoses Moderate persistent asthma with acute exacerbation J45.41 Asthma severity: moderate Asthma persistence: persistent Asthma complication type: with acute exacerbation
== END 2024-06-30 11:21 | disposition home or self-care (01) ==
LOC: HO.HPS 10:50
PROVIDERS: PCP Internal Medicine; Visit Provider Internal Medicine Pulmonary Disease
DX: J45.41 Moderate persistent asthma with (acute) exacerbation (principal)
CPT/HCPCS: 99213

== ENCOUNTER → 2024-06-30 10:49 | Outpatient (BNVA) | payer OTHER, SELFPAY | PROVIDERS: PCP Internal Medicine; Visit Provider Internal Medicine Pulmonary Disease | DX: J45.41 Moderate persistent asthma with (acute) exacerbation (principal) | CPT/HCPCS: 99212 ==

== ENCOUNTER 2025-02-21 04:25 | Emergency (ER) | payer OTHER, SELFPAY ==
--- NOTE | ~2025-02-21 | XR_ITS ---
CLINICAL HISTORY: fall, pain, swelling 3 view left foot Comparison: None provided Findings: No displaced fractures or dislocations. No significant loss of joint space, osteophytes, or erosions. There is diffuse soft tissue edema. There is a 1 mm ossification secondary to soft tissue ossification or tiny avulsion fracture of unknown age distal to the middle phalanx of the 2nd digit. No radiopaque foreign body. IMPRESSION: Diffuse soft tissue edema 1 mm ossification secondary to soft tissue ossification or tiny avulsion fracture of unknown age distal to the middle phalanx of the 2nd digit. This document has been electronically signed by: Frank Rios MD on 02/21/2025 06:44:02
--- NOTE | ~2025-02-21 | XR_ITS ---
CLINICAL HISTORY: fall, pain, swelling 3 view left ankle Comparison: None provided Findings: No acute fractures. Ankle mortise intact. There is mild lateral subluxation of the talus. Normal bone mineralization No radiopaque foreign body. There is metallic plate and screws across old healed distal 3rd diaphyseal fibula fracture. There is soft tissue edema. IMPRESSION: Soft tissue edema No acute fractures There is mild lateral subluxation of the talus without dislocation suspicious for ligamentous injury of unknown age This document has been electronically signed by: Frank Rios MD on 02/21/2025 06:45:30
[2025-02-21 04:31] VITALS: BP 150/90; BP 152/101; PULSE 100; PULSE 84; RESP 16; TEMP 36.7; O2SAT 100; O2SAT 99; BMI 30.6
--- NOTE | 2025-02-21 05:21 | ED_ITS ---
HPI - Extremity Injury (Lower) General Chief Complaint: Extremity Injury, Lower Stated Complaint: foot pain Time Seen by Provider: 02/21/25 05:13 Source: patient Mode of arrival: ambulatory Limitations: no limitations History of Present Illness ED Provider: Han NINA HPI Narrative: The patient is a 45-year-old female who presented to the ED for evaluation of left ankle pain after slipping and falling in her bathroom around 03:30. She reports twisting her left ankle and experiencing immediate severe pain localized to the dorsal and lateral aspects of the left foot, near the distal end of a previously placed surgical emmie (surgery performed at this facility ~2 years ago). She states she was unable to move the foot initially due to pain and noted swelling without overlying skin break or bruising, patient reports the swelling has somewhat improved since the incident. She remains unable to bear weight on the left foot and describes diminished sensation in her toes. She denies any head trauma or loss of consciousness, and denies calf pain. She was given 2 ibuprofen by EMS prior to arrival. No other interventions attempted at home. Related Data Home Medications ?Medication ?Instructions ?Recorded ?Confirmed nebulizers 02/22/23 Previous Rx's ?Medication ?Instructions ?Recorded ibuprofen 600 mg tablet 600 mg PO TID PRN pain #30 t abs 07/27/20 omeprazole 10 mg capsule,delayed 10 mg PO DAILY 30 day s #30 caps 07/01/22 release boric acid 600 mg vaginal 600 mg vaginal DAILY PRN Vag inal 11/20/23 suppository itch / irritation 7 days #7 ea albuterol sulfate 90 mcg/actuation 2 puff inhalation Q 4H PRN 06/30/24 aerosol inhaler shortness of breath or wheez ing 30 days #1 ea albuterol sulfate 90 mcg/actuation 2 puff inhalation Q 4-6H PRN 06/30/24 aerosol inhaler (Ventolin HFA) shortness of breath or wheezing #1 ea fluticasone furoate 200 1 inh inhalation DAILY #1 ea 06/30/24 mcg-vilanterol 25 mcg/dose inhalation powder (Breo Ellipta) ipratropium 20 mcg-albuterol 100 1 puff inhalation Q4H #4 grams 06/30/24 mcg/actuation mist for inhalation (Combivent Respimat) prednisone 10 mg tablet 10 mg PO DIRECTED #70 tab s 06/30/24 codeine 10 mg-guaifenesin 100 mg/5 10 ml PO Q4-6H PRN allergy 07/04/24 mL oral liquid symptoms #473 mL Allergies Allergy/AdvReac Type Severity Reaction Status Date / Time mold (MOLD) Allergy Intermediate HIVES Verified 02/21/25 04:35 silver Allergy Intermediate Rash Verified 02/21/25 04:38 milk (MILK) Allergy Unknown UNKNOWN Verified 02/21/25 04:35 Review of Systems Review of Systems: Yes all other systems are reviewed and are negative PMFSH Past Medical History Medical History Heart burn Surgical History History of open reduction and internal fixation (ORIF) procedure S/P hardware removal Family History Family History Brother Depression Social History Social History Household Members: None Housing: Apartment Alcohol intake: current Alcohol intake frequency: a few times a month Patient Tobacco Use Status: Never used Tobacco e-Cigarette/Vaping Use: Never Used Second Hand Smoke Exposure: Yes Advance Directives: No Advance Directives Information Provided: Yes service: No Current occupational status: disabled Cognitive needs: No Hearing needs: No Vision needs: No Physical Exam Vital Signs: Vital Signs: Last Vital Signs Temp 98.1 F 02/21/25 04:31 Pulse 84 02/21/25 04:31 Resp 16 02/21/25 04:31 BP 152/101 H 02/21/25 04:31 Pulse Ox 99 02/21/25 04:31 O2 Del Method Room Air 02/21/25 04:31 BMI result Body Mass Index 30.6 CONSTITUTIONAL: The patient appears non-toxic, well nourished and in no acute distress. Vital signs as documented. HEAD: Atraumatic, normocephalic. EYES: EOMs grossly intact, pupils equal, conjunctiva clear, no exudate. ENT: Nares patent, no discharge. Airway patent, no audible stridor, visible mucosa is pink and moist without noted lesions. NECK: trachea is midline, no obvious masses or gross abnormalities. CHEST: Symmetric movement, normal appearance. LUNGS: Non-labored work of breathing. CARDIAC: No evidence of hypoperfusion. ABDOMEN: Nondistended, no obvious injury. : Deferred. EXTREMITIES: There is swelling and tenderness to palpation of the dorsal lateral aspect of the left foot in the anterior aspect of the lateral malleolus without associated bony crepitus, open injury, or significant contusion. Distal CSM intact, 2+ DP/PT pulses. Patient moves all other extremities spontaneously without reported pain. No other obvious injury or deformity noted. NEURO: Alert and oriented x3, CN II-XII appear grossly intact. Cerebellar Functioning grossly intact. Speech clear and appropriate. SKIN: Warm, dry, color appropriate. No rashes or lesions noted. Course Reevaluation(s) Reevaluation #1: DR. Reeder's progress note: I endorse care for this patient at 7am to check x- rays for acute fracture, x-ray is showing soft tissue swelling without discrete fracture of the ankle or the foot. Will apply Fredrick bandage patient was instructed to no weight bearing can not do crutches because she has a balance problem but patient has a walker at home that she will use. Patient was instructed to follow-up with Dr. Escalona otherwise, take ov [id number] NSAIDs if needed for pain. Time: 07:17 Medications Administered Discontinued Medications Generic Name Dose Route Start Last Admin Trade Name Freq PRN Reason Stop Dose Admin Acetaminophen 975 mg 02/21/25 05:27 02/21/25 05:57 Acetaminophen 325 Mg Tablet PO 02/21/25 05:28 975 mg ONCE ONE Administration Medical Decision Making Medical Decision Making MDM Narrative: 5:22 AM 02/21/2025 (Liz NINA): The patient is a 45-year-old female who presented to the ED for evaluation of left ankle pain after slipping and falling in her bathroom around 03:30. She reports twisting her left ankle and experiencing immediate severe pain localized to the dorsal and lateral aspects of the left foot, near the distal end of a previously placed surgical emmie (surgery performed at this facility ~2 years ago). She states she was unable to move the foot initially due to pain and noted swelling without overlying skin break or bruising, patient reports the swelling has somewhat improved since the incident. She remains unable to bear weight on the left foot and describes diminished sensation in her toes. She denies any head trauma or loss of consciousness, and denies calf pain. She was given 2 ibuprofen by EMS prior to arrival. No other interventions attempted at home. On exam the patient has tenderness to palpation over the dorsal lateral aspect of the left foot with noted swelling without associated open wound or bony crepitus. The patient has minimal tenderness of the lateral malleolus of the left ankle, distal CSM is intact, 2+ DP/PT pulses, full but reported painful range of motion. Patient will be sent for plain films and we will add on Tylenol for pain control. 6:42 AM 02/21/2025 (Liz NINA): Patient's x-rays are pending interpretation, patient is signed out to oncoming provider Dr. Reeder Admission/Observation Consideration of admission/observation: Escalation of care including admission/observation considered External Record Review External record reviewed: Outpatient record and Prior outpatient labs Prescription Management I considered prescription management with: Pain Medication Discharge Plan Discharge Clinical Impression: Ankle sprain and strain Patient Disposition: Home, Self-Care Instructions: Ankle Sprain (ED) Additional Instructions: Take rdve-aaf-glzhimb 200 mg tablet ibuprofen or 500 mg tablet Tylenol if needed for pain every 6 hours. Prescriptions: No Action omeprazole 10 mg capsule,delayed release(DR/EC) 10 mg PO DAILY 30 Days Qty: 30 0RF codeine-guaifenesin 10-100 mg/5 mL liquid 10 ml PO Q4-6H PRN (Reason: allergy symptoms) Qty: 473 0RF ibuprofen 600 mg tablet 600 mg PO TID PRN (Reason: pain) Qty: 30 0RF boric acid 600 mg suppository 600 mg vaginal DAILY PRN (Reason: Vaginal itch / irritation) 7 Days Qty: 7 0RF (DME) nebulizers Misc See Rx Instructions .ROUTE Rx Instructions: As directed albuterol sulfate 90 mcg/actuation HFA aerosol inhaler 2 puff inhalation Q4H PRN (Reason: shortness of breath or wheezing) 30 Days Qty: 1 6RF albuterol sulfate [Ventolin HFA] 90 mcg/actuation HFA aerosol inhaler 2 puff inhalation Q4-6H PRN (Reason: shortness of breath or wheezing) Qty: 1 6RF fluticasone furoate-vilanterol [Breo Ellipta] 200-25 mcg/dose blister with device 1 inh inhalation DAILY Qty: 1 6RF Combivent Respimat 20-100 mcg/actuation mist 1 puff inhalation Q4H Qty: 4 6RF prednisone 10 mg tablet 10 mg PO DIRECTED Qty: 70 0RF Rx Instructions: Take 4 tabs daily for 7 days, then go down by 1 tab every 7 days Referrals: Marisa Cardenas MD [Primary Care Provider, Internal Medicine] Zeke Escalona MD [Physician, Orthopedics] Print Language: German
[2025-02-21 07:35] VITALS: BP 121/86; PULSE 94; RESP 16; TEMP 36.6; O2SAT 100
--- OUTSIDE RECORDS SUMMARY | 2025-02-21 14:33 | XMS_ITS | Clinical Summary ---
Author Organization [facility] it Address [address] [place] [address] Care Team Providers Care Battery Wrecker Operator Name Role Phone Marisa Cardenas MD Primary Care Provider [phone] Surgical History Surgery Date Site/Laterality Comments OTHER SURGICAL HISTORY PROCEDURE: DENIES PREVIOUS SURGERY Medical History Medical History Date Comments Depressed DX:Depressed Anxiety DX:Anxiety RAD (reactive airway disease) DX :RAD (reactive airway disease) Family History Medical History Relation Name Comments Breast cancer Maternal Grandmother Relation Name Status Comments Maternal Grandmother Social History Tobacco Use Types Packs/Day Years Used Date Smoking Tobacco: Never Smokeless Tobacco: Never Alcohol Use Standard Drinks/Week Comments Yes 0 (1 standard drink = 0.6 oz pur e alcohol) Comments Unknown Sex and Gender Information Value Date Recorded Sex Assigned at Not on file Legal Sex Female 10:18 AM EST Gender Identity Not on file Sexual Orientation Not on file Obstetrics History Last Filed Vital Signs Vital Sign Reading Time Taken Comments Blood Pressure 125/86 01/11/2024 11:38 AM EDT Pulse 78 01/11/2024 11:38 AM EDT Temperature - - Respiratory Rate - - Oxygen Saturation - - Inhaled Oxygen Concentration - - Weight 75.1 kg (165 lb 9.6 oz) 01/11/2024 11:38 AM EDT Height 162.6 cm (5' 4 ) 11/03/2023 1:37 PM EDT Body Mass Index 28.43 11/03/2023 1:37 PM EDT Plan of Treatment Health Maintenance Due Date Last Done Comments Breast Cancer Screening 1979 Colorectal Cancer Screening: Colonoscopy 1979 Hepatitis B Vaccines (1 of 3 - 19+ 3-dose series) 1998 Pneumococcal Vaccine: Pediat rics (0 to 5 Years) and At-Risk Patients (6 to 49 Years) (1 of 2 - PCV) 1998 Cervical Cancer Screening: P ap Smear 01/08/2000 HIV Screening 07/19/2022 Hepatitis C Screening 07/19/2022 Social Influencers of Health Screening 07/19/2022 Depression Screening 04/05/2024 COVID-19 Vaccine (1 - 2024-2 6 season) 2024 Influenza Vaccine (#1) 2024 DTaP,Tdap,and Td Vaccines (2 - Td or Tdap) 09/03/2025 09/04/2015 RSV Immunization Adult Patie nts (1 - 1-dose 75+ series) 2054 HIB Vaccines Aged Out No longer eligi ble based on patient's age to complete this topic HPV Vaccines Aged Out No longer eligi ble based on patient's age to complete this topic Hepatitis A Vaccines Aged Out No long er eligible based on patient's age to complete this topic IPV Vaccines Aged Out No longer eligi ble based on patient's age to complete this topic MMR Vaccines Aged Out No longer eligi ble based on patient's age to complete this topic Meningococcal ACWY Vaccine Aged Out N o longer eligible based on patient's age to complete this topic Meningococcal B Vaccine Aged Out No l onger eligible based on patient's age to complete this topic RSV Immunization Patients Un tequila 20 months Aged Out No longer eligible b ased on patient's age to complete this topic Varicella Vaccines Aged Out No longer eligible based on patient's age to complete this topic Care Teams Battery Wrecker Operator Relationship Specialty Start Date End Date Marisa Cardenas MD [address] [place] [address] PCP - General 11/12/23
--- OUTSIDE RECORDS SUMMARY | 2025-02-21 14:34 | XMS_ITS | Data Portability ---
Author Organization [facility] [address] Address [address] [place] [address] Assessment No assessment recorded. Plan of Treatment Reminders Order Date Submit Date Provider Last Modified By Organization Details Last Modified Time Details Appointments None recorded. Lab None recorded. Referral None recorded. Procedures None recorded. Surgeries None recorded. Imaging None recorded. Medication Orders cephalexin 500 mg capsule 2022 023 [facility] #[id number], [address] [facility] , [place], [address], 16:02:04 Patient TargetsNo targets recorded. Patient Instructions Encounter Date Encounter Id Patient Instructions Last Modified By Organization Details Last Modified Time 11/19/2022 [id number] Cellulitis is a skin infection caused by bacteria, most often strep or staph. It often occurs after a break in the skin from a scrape, cut, bite, or puncture, or after a rash. Cellulitis may be treated without doing tests to find out what caused it. But your doctor may do tests, if needed, to look for a specific bacteria, like methicillin-resist ant Staphylococcus aureus (MRSA). The doctor has checked you carefully, but problems can develop later. If you notice any problems or new symptoms, get medical treatment right away. How can you care for yourself at home? Take your antibiotics as directed. Do not stop taking them just because you feel better. You need to take the full course of antibiotics. Prop up the infected area on pillows to reduce pain and swelling. Try to keep the area above the level of your heart as often as you can. If your doctor told you how to care for your infection, follow your doctor's instructions. If you did not get instructions, follow this general advice: Wash the area with clean water 2 times a day. Don't use hydrogen peroxide or alcohol, which can slow healing. You may cover the area with a thin layer of petroleum jelly, such as Vaseline, and a non-stick bandage. Apply more petroleum jelly and replace the bandage as needed. Be safe with medicines. Take pain medicines exactly as directed. If the doctor gave you a prescription medicine for pain, take it as prescribed. If you are not taking a prescription pain medicine, ask your doctor if you can take an clsm-bbv-lqoxstk medicine. [email or web address] Not available 11/19/2022 16:01:20 Reason for Referral None Reported. Problems Name Problem SNOMED Code Status Onset Date Resolution Date Notes Provider Name and Address Organization Details Recorded Time Gastroesophage al reflux disease 875372728 Active 2022 [facility] 15:33:15 Rosacea 519831428 Active 2022 [facility] 15:33:20 Problem Notes None recorded. Procedures Surgical History Date Name Laterality Status Provider Name and Address Organization Details Recorded Time leg repair completed YAHAIRA Headley [facility] 11/19/2022 15:34:22 Imaging Results None recorded. Procedure Notes None recorded. Medical Equipment None Reported. Allergies No known drug allergies Medications Name Sig Start Date Stop Date Status Note LastModified by Organization Details LastModified Time cephalexin 500 mg capsule Take 1 capsule every 8 hours by oral route with meals for 7 days. 023 active Not Available Not Available Not Avai lable doxycycline hyclate active Not Available Not Available Not Available Prilosec active Not Available Not Avai lable Not Available Vitals Date Recorded Body height Body mass index (BMI) Body weight Pain severity - 0-10 verbal numeric rating [Score] - Reported Respiratory rate Oxygen saturation Oxygen saturation in Arterial blood by Pulse oximetry Heart rate Body temperature Systolic And Diastolic Provider Name and Address Organization Details Last Updated DateTime 3 162.56 cm 30.9 kg/m2 90157.6 3 g 8 16 /min 100 % 100 % 64 /min 98.4 [degF] 146/92 mm[Hg] YAHAIRA NINA - [facility] 15:35:46 Social History Question Answer Notes LastModified by Organizat ion Details LastModified Time Tobacco Smoking Status Never Smoker [facility] - [facility] 11/19/2022 15:33:32 Have You Recently Traveled Abroad? No [email or web address] Information not available 11/19/2022 Sex: Unknown Functional Status Question Answer Note LastModified by Organizat ion Details LastModified Time Do you use any illicit or recreational drugs? No [email or web address] Information not available 11/19/2022 Do you or have you ever used any other forms of tobacco or nicotine? No [email or web address] Information not available 11/19/2022 What is your level of alcohol consumption? Occasional [email or web address] Information not available 11/19/2022 Mental Status None recorded. Family History Nothing Reported. Medical History No medical history recorded. Gynecological History Statement/Question Response Date of LMP 10/19/2022 Is there any chance of ? No Obstetrics History GPAL:G 0 P 0 0 0 0 Past Encounters Encounter ID Performer Location Encounter Start Date Encounter Closed Date Diagnosis/Indication Diagnosis SNOMED-CT Code Diagnosis ICD10 Code Diagnosis IMO Codes Diagnosis Note [id number] [address] [place] [address] 11/26/2016 18:02:12 11/26/2016 18:37:01 [id number] [address] [place] [address] 09/09/2015 11:19:17 09/09/2015 12:08:15 [id number] [address] [place] [address] 10/07/2016 16:32:08 10/07/2016 17:01:53 [id number] [address] [place] [address] 03/14/2015 13:48:44 03/14/2015 14:17:23 [id number] [address] [place] [address] 09/16/2015 16:57:03 09/16/2015 18:17:33 [id number] [place] [address] [place] [address] 11/19/2022 15:25:26 11/19/2022 16:23:30 Cellulitis of toe of right foot [id number] L03.031 follow up with operator weapon locating radar . seem like valgus deformity of right toes. Health Concerns Section Related Observation LastModified by Organization Detai ls LastModified Time None Recorded Concern Status LastModified by Organization Details LastModified Time None Recorded Advance Directives Directive None Recorded Payers Insurance Date Sequence Insurance Name Policy Number Policy Garcia Covered Member ID Garcia Member ID Guarantor Name 11/19/2022 PROMPT PAY He ather Auger 11/19/2022 1 [place] B[place] [employer] Amanda E Auger [id number] Amanda Auger 11/19/2022 2 [place] [facility] Amanda E Auger [id number] Amanda Auger Notes Date Note Type Note Provider Name and Address Organization Details Recorded Time 3 text/html ToesReported by PatientHPIFor associated symptoms, patient reportsswelling,redness, andwarmthbut reportsno weakness,no numbness,no tingling,no ecchymosis,no catching/locking,no popping/clicking,no buckling,no grinding,no instability,no drainage,no fever, andno chills. For source of patient information, patient reportsinformation obtained from patientandpatient arrived at urgent care ambulatory(42 year old female comes in with valgus deformity of right foot 5th toe . denuded area in between 5th and 4th toe. erythematous and peeling off skin. denies any trauma or injuries. denies any fever .). For location, patient reportsrightandlateral. For quality, patient reportsaching,constant, andworsening. For severity, patient reportsmild. For duration, patient reports3 daysand___ weeks. For timing, patient reportsacute. For context, patient reportsatraumatic. For alleviating factors, patient reportselevationandnsaids. For aggravating factors, patient reportsweightbearing. For previous surgery, patient reportsnone. For prior imaging, patient reportsnone. For previous injections, patient reportsnone. For previous pt, patient reportsnone. Tommie Khoury NP [address] [place], [address], [place] - [facility] 11/23/2022 08:42:23 OBGyn Episode No OBEpisode recorded.
--- OUTSIDE RECORDS SUMMARY | 2025-02-21 14:34 | XMS_ITS | Clinical Summary ---
Author Organization [facility] Address [address] [address] Phone Care Team Providers Care Licensed Midwife Name Role Phone Unavailable Primary Care Provider Unavailabl e Social History Tobacco Use Types Packs/Day Years Used Date Smoking Tobacco: Never Assessed Education Answer Date Recorded Are you interested in more education? Not on john paul e 07/31/2022 Are you concerned about learning? Not on file 07/31/2022 No 07/31/2022 No 07/31/2022 Digital Access Answer Date Recorded No 08/31/2022 No 08/31/2022 No 08/31/2022 Reliable internet access at home? Not on file 08/31/2022 Device with a working camera? Not on file Comments Unknown Sex and Gender Information Value Date Recorded Sex Assigned at Not on file Legal Sex Female 9:23 PM EDT Gender Identity Not on file Sexual Orientation Not on file Plan of Treatment Health Maintenance Due Date Last Done Comments LIPID PANEL 1979 DEPRESSION SCREENING 1991 SMOKING Hx and SMOKELESS TOBACCO SCREENING 01/08/1992 HEPATITIS C SCREENING 1997 HIV ONE-TIME SCREENING (18-6 5 YEARS) 1997 PAP SMEAR 01/08/2000 MAMMOGRAM 2019 COLOGUARD 01/08/2024 COLONOSCOPY 01/08/2024 COLORECTAL CANCER SCREENING 01/08/2024 FIT TEST 01/08/2024 FOBT 01/08/2024 SIGMOIDOSCOPY 01/08/2024 VIRTUAL COLONOSCOPY 01/08/2024 INFLUENZA VACCINE (#1) 2024 0, 06/05/2008 COVID-19 VACCINE (2024-2 6 season) 2024 07/18/2020 Adult Td,Tdap Booster 09/03/2025 09/04/2015 , 04/05/2000 HEPATITIS A VACCINES Aged Out No long er eligible based on patient's age to complete this topic HIB VACCINES Aged Out No longer eligi ble based on patient's age to complete this topic MENINGOCOCCAL VACCINES (ACWY) Aged Out No longer eligible based on patient's age to complete this topic MENINGOCOCCAL VACCINES (B) Aged Out N o longer eligible based on patient's age to complete this topic PNEUMOCOCCAL VACCINES (0-49 years) Aged Out No longer eligible b ased on patient's age to complete this topic Medical Devices Not on file Insurance MEDICARE PART A & B [facility] MEDICARE PART A & B [facility] PART A & B [facility] MEDICARE PART A & B Member Subscriber Plan / Payer (Ef fective 2003-Present) Name:Amanda Thakur Member ID:[id number] Relation to Subscriber:Self Name:Amanda Thakur Subscriber ID:[id number] Payer ID:[id number] Group ID:Not on file Type:Medicare Address: [employer] [address] [facility] MED[facility] PART A & B [facility] PART A & B Member Subscriber Plan / Payer (Ef fective 2003-Present) Name:Amanda Thakur Member ID:[id number] Relation to Subscriber:Self Name:Amanda Thakur Subscriber ID:[id number] Payer ID:[id number] Group ID:Not on file Type:Medicare Address: [employer] [address] [place] [phone] [place] [facility] [place] [phone] Additional Source Comments The information contained in this document represents components of the legal health record. It is not the complete legal health record.[facility]
== END 2025-02-21 07:37 | disposition home or self-care (01) ==
PROVIDERS: Emergency Provider Emergency Medicine; PCP Internal Medicine
DX: S93.402A Sprain of unspecified ligament of left ankle, initial encounter (principal); W01.0XXA Fall on same level from slipping, tripping and stumbling without subsequent striking against object, initial encounter; Y93.9 Activity, unspecified; Y92.002 Bathroom of unspecified non-institutional (private) residence as the place of occurrence of the external cause
CPT/HCPCS: 73610; 73630; 99283

== ENCOUNTER → 2025-02-21 05:40 | Outpatient (BNV) | payer OTHER, SELFPAY | PROVIDERS: Emergency Provider Emergency Medicine; PCP Internal Medicine; Visit Provider Radiology Diagnostic Radiology | DX: S93.01XA Subluxation of right ankle joint, initial encounter (principal); R60.0 Localized edema | CPT/HCPCS: 73610; 73630 ==

== ENCOUNTER 2025-03-07 12:54 | Outpatient (AMB) | payer OTHER, SELFPAY ==
[2025-03-07 13:08] VITALS: BMI 30.1
--- NOTE | 2025-03-07 13:08 | A.OFFVIS_ITS ---
Vital Signs 03/07/25 13:08 Height 5 ft 3 in Weight 170 lb BMI 30.1 Intake Visit Reasons: Ankle sprain and strain Intake Note: Amanda is a 45 year old female who presents today as a new patient for an evaluation of her left ankle sprain. Patient reports injury occurred after she had fallen and twisted her ankle. She was seen at [facility] ED where she was provided with an FREDRICK bandage. She is having immense pain and describes experiencing a stiffness on the dorsum aspect and medial aspect of her foot. Patient reports she has been preforming stretching exercises and following the rice protocol. Foot and ankle X ray in patients chart. Allergies mold (MOLD) Allergy (Intermediate, Verified 02/21/25 04:35) HIVES silver Allergy (Intermediate, Verified 02/21/25 04:38) Rash milk (MILK) Allergy (Unknown, Verified 02/21/25 04:35) UNKNOWN HPI Comments Details: The patient is a 45 year old with a past medical history as seen below individual presenting with left foot and ankle pain. The injury occurred two weeks ago on the and was diagnosed as an ankle sprain the ED. The patient reports being unable to walk since the injury, experiencing stiffness and a sensation of having a emmie in the foot. The patient describes the pain as a dull throb and achy pain localized primarily to the great toe, the dorsum of the foot, and the medial aspect of the ankle. Associated symptoms include numbness, tingling, and burning sensations, which were aggravated the night before and the morning of the visit. Initially, the patient's foot was significantly swollen, described as looking like a sausage, and had visible bruising. For self-management, the patient has been performing home physical therapy exercises, including range of motion with circles, toe movements, calf stretches, and using a balance board. The patient reports that ibuprofen is ineffective for pain relief, but wearing a compression sock provides some comfort. The patient has also been using ice and a heating pad. The patient reports no known allergies to food or medication. She denies any other pedal concerns. [facility] Medical History (Updated 03/07/25 @ 13:12 by Blossom Hunt DPM) Left foot pain Left ankle pain Sprain of left foot Left ankle sprain Left ankle injury Heart burn Surgical History S/P hardware removal History of open reduction and internal fixation (ORIF) procedure Family History Brother Depression Social History Household Members: None Housing: Apartment Alcohol intake: current Alcohol intake frequency: a few times a month Patient Tobacco Use Status: Never used Tobacco e-Cigarette/Vaping Use: Never Used Second Hand Smoke Exposure: Yes service: No Current occupational status: disabled Cognitive needs: No Hearing needs: No Vision needs: No Review of Systems Const Details: - Musculoskeletal: Reports left foot and ankle stiffness, inability to walk normally, and a dull, throbbing, achy pain. - Neurological: Reports numbness, tingling, and a burning sensation in the foot. All systems reviewed & are unremarkable except as noted in HPI and below Physical Exam Vital Signs: BMI result Body Mass Index 30.1 Extrem Other: Left lower extremity focused physical exam: Derm: Mild ecchymosis noted to the area of the metatarsal heads dorsally. No open lesions abrasions or wounds noted. No hyperkeratotic or macerated areas noted. No erythema or clinical signs of infection noted. Skin supple and turgor within normal limits. Vascular: DP/PT pulses palpable. Capillary refill time less than 3 seconds. Temperature gradient warm to warm. Mild edema noted. Pedal hair absent. Neuro: Protective sensation is grossly intact to light touch, although patient reports intermittent numbness and tingling. MSK: Pain on palpation along the 1st metatarsal and hallux. No pain on palpation to the hindfoot or ankle. Range of motion of the forefoot within normal limits but noted with the pain. Range of motion of the hindfoot and ankle within normal limits. No crepitus or fluctuance noted. MMT 4/5. Mild antalgic gait noted. Office Procedures AMB Podiatry Dressing Details of Procedure: Applied a stockinette, cast padding, and Fredrick bandage to the left lower extremity with the use of the cam boot. 35215 - Short leg splint Procedure code (CPT) selection complete Results Reviewed Results Reviewed: Podiatry read of left foot x-ray (02/21/2025): No acute fractures or dislocations noted. Mild hammertoe deformities noted. Left foot x-ray (02/21/2025): Findings: No displaced fractures or dislocations. No significant loss of joint space, osteophytes, or erosions. There is diffuse soft tissue edema. There is a 1 mm ossification secondary to soft tissue ossification or tiny avulsion fracture of unknown age distal to the middle phalanx of the 2nd digit. No radiopaque foreign body. IMPRESSION: Diffuse soft tissue edema 1 mm ossification secondary to soft tissue ossification or tiny avulsion fracture of unknown age distal to the middle phalanx of the 2nd digit. Podiatry read of left ankle x-ray (02/21/2025): Intact hardware from previous fibular ORIF noted. Mild increased medial clear space (measuring approximately 4.5 mm) with Lateral translation/subluxation of the talus noted. No acute fractures or dislocations noted. Left ankle x-ray (02/21/2025): Findings: No acute fractures. Ankle mortise intact. There is mild lateral subluxation of the talus. Normal bone mineralization No radiopaque foreign body. There is metallic plate and screws across old healed distal 3rd diaphyseal fibula fracture. There is soft tissue edema. IMPRESSION: Soft tissue edema No acute fractures There is mild lateral subluxation of the talus without dislocation suspicious for ligamentous injury of unknown age Assessment & Plan Assessment & Plan (1) Left foot pain: Code(s): M79.672 - Pain in left foot Category: Medical (2) Left ankle pain: Code(s): M25.572 - Pain in left ankle and joints of left foot Category: Medical (3) Sprain of left foot: Code(s): S93.602A - Unspecified sprain of left foot, initial encounter Category: Medical (4) Left ankle sprain: Code(s): S93.402A - Sprain of unspecified ligament of left ankle, initial encounter Category: Medical (5) Left ankle injury: Code(s): S99.912A - Unspecified injury of left ankle, initial encounter Category: Medical Plan Patient was informed and verbally consented to the use of an ambient scribe for clinic note documentation during this visit. I discussed with the patient the plan for managing the left foot and ankle pain and inflammation. I explained that I am prescribing meloxicam. I advised the use of a CAM boot and crutches to offload the foot for the next couple of weeks, with an emphasis on placing weight on the heel. We reviewed the continuation of home exercises and added the practice of picking up objects with the toes to increase bending motion. The plan is to follow up in two weeks, and if pain persists, we will consider formal physical therapy and potentially advanced imaging. - Meloxicam was prescribed for pain and inflammation. - applied a stockinette, cast padding, and Fredrick bandage to the left lower extremity with the use of the cam boot. - The patient is instructed on activity modification, including avoiding full weight-bearing with the use of an assistive device with intermittent in partial weight-bearing to the heel for balance. - advised patient to continue with home therapy exercises and add toe pickup exercises to improve range of motion. - Adhere to rice protocol. RTC in 2 weeks. Orders: Orders 2 AMB Podiatry Dressing 03/07/25 M25.572 - Pain in left ankle and joints of left foot, M79.672 - Pain in left foot, S93.402A - Sprain of unspecified ligament of left ankle, initial encounter, S93.602A - Unspecified sprain of left foot, initial encounter, S99.912A - Unspecified injury of left ankle, initial encounter Medications: New meloxicam 15 mg PO DAILY 30 tabs 0RF M25.572 - Pain in left ankle and joints of left foot, M79.672 - Pain in left foot, S93.402A - Sprain of unspecified ligament of left ankle, initial encounter, S93.602A - Unspecified sprain of left foot, initial encounter, S99.912A - Unspecified injury of left ankle, initial encounter Coding Level of Care Code New Pt Level 4 (90262) Diagnoses Left foot pain M79.672 Left ankle pain M25.572 Sprain of left foot S93.602A Left ankle sprain S93.402A Left ankle injury S99.912A CPT Codes Podiatry Dressing - CPT: 86775 - Short leg splint ([id number]) Time Spent (min) 47
--- OUTSIDE RECORDS SUMMARY | 2025-03-07 15:20 | XMS_ITS | Clinical Summary ---
Author Organization [facility] it Address [address] [place] [address] Care Team Providers Care Senior Executive Compensation Analyst Name Role Phone Marisa Cardenas MD Primary Care Provider [phone] Surgical History Surgery Date Site/Laterality Comments OTHER [...] age to complete this topic Care Teams Senior Executive Compensation Analyst Relationship Specialty Start Date End Date Marisa Cardenas MD [address] [place] [address] PCP - General 11/12/23
--- OUTSIDE RECORDS SUMMARY | 2025-03-07 15:20 | XMS_ITS | Clinical Summary ---
Author Organization [facility] Address [address] [address] Phone Care Team Providers Care Shipfitter Apprentice Name Role Phone Unavailable Primary Care Provider [...] file Insurance MEDICARE PART A & B [facility] MEDIC[facility] PART [facility] & [facility] MEDICARE PART A & B Member Subscriber Plan / Payer (Ef fective 2003-Present) Name:Amanda Thakur Member ID:[id number] Relation to Subscriber:Self Name:Amanda Thakur Subscriber ID:[id number] Payer ID:[id number] Group ID:Not on file Type:Medicare Address: [email or web address] [address] [facility] & [facility] A & B Member Subscriber Plan / Payer (Ef fective 2003-Present) Name:Amanda Thakur Member ID:[id number] Relation to Subscriber:Self Name:Amanda Thakur Subscriber ID:[id number] Payer ID:[id number] Group ID:Not on file Type:Medicare Address: [email or web address] [address] [place] [phone] [place] [facility] [place] [phone] Additional Source Comments The information contained in this document represents components of the legal health record. It is not the complete legal health record.[facility]
== END 2025-03-07 13:38 | disposition home or self-care (01) ==
LOC: HO.HPODS 12:55
PROVIDERS: PCP Internal Medicine; Visit Provider Student in an Organized Health Care Education/Training Program
DX: M79.672 Pain in left foot (principal); M25.572 Pain in left ankle and joints of left foot; S93.402A Sprain of unspecified ligament of left ankle, initial encounter; S99.912A Unspecified injury of left ankle, initial encounter
CPT/HCPCS: 29515; 99204

== ENCOUNTER → 2025-03-07 12:54 | Outpatient (BNVA) | payer OTHER, SELFPAY | PROVIDERS: PCP Internal Medicine; Visit Provider Student in an Organized Health Care Education/Training Program | DX: S93.602A Unspecified sprain of left foot, initial encounter (principal); S93.402A Sprain of unspecified ligament of left ankle, initial encounter; X58.XXXA Exposure to other specified factors, initial encounter; Y93.9 Activity, unspecified; Y92.9 Unspecified place or not applicable; Y99.9 Unspecified external cause status | CPT/HCPCS: 29515; 99202 ==

== ENCOUNTER 2025-03-21 15:25 | Outpatient (AMB) | payer OTHER, SELFPAY ==
[2025-03-21 15:34] VITALS: BMI 30.1
--- NOTE | 2025-03-21 15:34 | A.OFFVIS_ITS ---
Vital Signs 03/21/25 15:34 Height 5 ft 3 in Weight 170 lb BMI 30.1 Intake Visit Reasons: f/u left foot and ankle sprain Intake Note: Amanda is a 45 year old female who presents today for a follow up on her left foot and ankle sprain. At her last visit she was prescribed meloxicam for her pain and inflammation. A stockinette, cast padding, and pedro pablo bandage was applied and she was provided with a cam boot. She was advised to adhere to the rice protocol and continue with home therapy exercises, and to remain partial weight bearing with the use of assisted device. Patient reports she is still experiencing stiffness and pain and she did not find relief with the meloxicam medication. Allergies mold (MOLD) Allergy (Intermediate, Verified 03/21/25 15:35) HIVES silver Allergy (Intermediate, Verified 03/21/25 15:35) Rash milk (MILK) Allergy (Unknown, Verified 03/21/25 15:35) UNKNOWN HPI Comments Details: The patient is a 45 year old female presenting for follow-up of left foot and ankle pain associated with plantar fasciitis and sprain. She states she cont inues to experience stiffness as well. She reports the pain is located on the top of her foot and in the arch, describing it as more annoying than severely painful. This is a chronic issue, as she has been performing stretches for three years. She states the pain to her ankle has resolved since the last visit. Patient states some meloxicam provided some relief and ibuprofen which did not provide relief. Patient states she notices some cracking sounds in her foot while ambulating. She states she has also noticed blanching of her toes, especially when cold. She denies any recent pedal injuries. She denies any other pedal concerns. [facility] Medical History (Updated 03/21/25 @ 15:43 by Blossom Hunt DPM) Plantar fasciitis of left foot Left foot pain Left ankle pain Sprain of left foot Left ankle sprain Left ankle injury Heart burn Surgical History S/P hardware removal History of open reduction and internal fixation (ORIF) procedure Family History Brother Depression Social History Household Members: None Housing: Apartment Alcohol intake: current Alcohol intake frequency: a few times a month Patient Tobacco Use Status: Never used Tobacco e-Cigarette/Vaping Use: Never Used Second Hand Smoke Exposure: Yes service: No Current occupational status: disabled Cognitive needs: No Hearing needs: No Vision needs: No Review of Systems Const Details: - Musculoskeletal: Reports left foot and ankle stiffness, inability to walk normally, and a dull, throbbing, achy pain. Reports crepitus to the foot. Integumentary/vascular: Reports intermittent blanching of the toes. - Neurological: Reports numbness, tingling, and a burning sensation in the foot. All systems reviewed & are unremarkable except as noted in HPI and below Physical Exam Vital Signs: BMI result Body Mass Index 30.1 Extrem Other: Left lower extremity focused physical exam: Derm: No ecchymosis noted to the area of the metatarsal heads dorsally. No open lesions abrasions or wounds noted. No hyperkeratotic or macerated areas noted. No erythema or clinical signs of infection noted. Skin supple and turgor within normal limits. Vascular: DP/PT pulses palpable. Capillary refill time less than 3 seconds. Temperature gradient warm to warm. Mild edema noted. Pedal hair absent. Neuro: Protective sensation is grossly intact to light touch, although patient reports intermittent numbness and tingling. MSK: Pain on palpation to the medial plantar arch. Positive windlass mechanism. No Pain on palpation along the 1st metatarsal and hallux. No pain on palpation to the hindfoot or ankle. Range of motion of the forefoot within normal limits but noted reduced pain. Range of motion of the hindfoot and ankle within normal limits. No crepitus or fluctuance noted. MMT 4/5. Mild antalgic gait noted, patient seen without Cam boot. Results Reviewed Results Reviewed: Podiatry read of left foot x-ray (02/21/2025): No acute fractures or dislocations noted. Mild hammertoe deformities noted. Left foot x-ray (02/21/2025): Findings: No displaced fractures or dislocations. No significant loss of joint space, osteophytes, or erosions. There is diffuse soft tissue edema. There is a 1 mm ossification secondary to soft tissue ossification or tiny avulsion fracture of unknown age distal to the middle phalanx of the 2nd digit. No radiopaque foreign body. IMPRESSION: Diffuse soft tissue edema 1 mm ossification secondary to soft tissue ossification or tiny avulsion fracture of unknown age distal to the middle phalanx of the 2nd digit. Podiatry read of left ankle x-ray (02/21/2025): Intact hardware from previous fibular ORIF noted. Mild increased medial clear space (measuring approximately 4.5 mm) with Lateral translation/subluxation of the talus noted. No acute fractures or dislocations noted. Left ankle x-ray (02/21/2025): Findings: No acute fractures. Ankle mortise intact. There is mild lateral subluxation of the talus. Normal bone mineralization No radiopaque foreign body. There is metallic plate and screws across old healed distal 3rd diaphyseal fibula fracture. There is soft tissue edema. IMPRESSION: Soft tissue edema No acute fractures There is mild lateral subluxation of the talus without dislocation suspicious for ligamentous injury of unknown age Assessment & Plan Assessment & Plan (1) Left ankle sprain: Code(s): S93.402A - Sprain of unspecified ligament of left ankle, initial encounter Category: Medical (2) Sprain of left foot: Code(s): S93.602A - Unspecified sprain of left foot, initial encounter Category: Medical (3) Plantar fasciitis of left foot: Code(s): M72.2 - Plantar fascial fibromatosis Category: Medical (4) Left foot pain: Code(s): M79.672 - Pain in left foot Category: Medical (5) Left ankle pain: Code(s): M25.572 - Pain in left ankle and joints of left foot Category: Medical (6) Left ankle injury: Code(s): S99.912A - Unspecified injury of left ankle, initial encounter Category: Medical Plan Patient was informed and verbally consented to the use of an ambient scribe for clinic note documentation during this visit. I explained to the patient that her symptoms are consistent with plantar fasciitis. I recommended physical therapy to help improve her range of motion and provide gait training to restore full foot functionality. We discussed starting with [id number] arch supports as a first step before considering custom orthotics. I will prescribe lidocaine patches to help manage her pain, especially as she becomes more active in physical therapy. I emphasized the importance of consistent stretching, as stopping the exercises once she feels better can lead to a recurrence of pain. I recommended she return for a follow- up in 6 weeks. - Provided patient with a referral for physical therapy. - Provided patient with a prescription for lidocaine patches. - Recommend use of wrgk-ine-itksnoi arch supports. - Advised patient to wear supportive shoe gear and avoid barefoot walking. - Advised patient to continue plantar fascial stretching. RTC in 6 weeks. Orders: Orders PT Evaluation and Treatment 03/21/25 S93.402A - Sprain of unspecified ligament of left ankle, initial encounter, S93.602A - Unspecified sprain of left foot, initial encounter, M72.2 - Plantar fascial fibromatosis Medications: New lidocaine 5% leave on most painful area for up to 12 hrs 2 patches topical DAILY 30 ea 1RF S93.402A - Sprain of unspecified ligament of left ankle, initial encounter, S93.602A - Unspecified sprain of left foot, initial encounter, M72.2 - Plantar fascial fibromatosis Coding Level of Care Code Est Pt Level 4 (42104) Diagnoses Left ankle sprain S93.402A Sprain of left foot S93.602A Plantar fasciitis of left foot M72.2 Left foot pain M79.672 Left ankle pain M25.572 Left ankle injury S99.912A Time Spent (min) 30
--- OUTSIDE RECORDS SUMMARY | 2025-03-21 20:23 | XMS_ITS | Data Portability ---
Author Organization [facility] [address] Address [address] [place] [address] Assessment No assessment recorded. Plan of Treatment Reminders Order Date Submit Date Provider Last Modified By Organization Details Last Modified Time Details Appointments None recorded. Lab None recorded. Referral None recorded. Procedures None recorded. Surgeries None recorded. Imaging None recorded. Medication Orders cephalexin 500 mg capsule 2022 023 [facility] #[id number], [address] [facility] , [place], [address], 16:02:04 Patient TargetsNo targets recorded. Patient Instructions Encounter Date Encounter Id Patient Instructions Last Modified By Organization Details Last Modified Time 11/19/2022 [id number] Cellulitis is a skin infection caused by [...] your doctor if you can take an zmpo-kag-efbiywe medicine. [email or web address] Not available 11/19/2022 16:01:20 Reason for Referral None Reported. Problems Name Problem SNOMED Code Status Onset Date Resolution Date Notes Provider Name and Address Organization Details Recorded Time Gastroesophage al reflux disease 599652291 Active 2022 [facility] 15:33:15 Rosacea 095737488 Active 2022 [facility] 15:33:20 Problem Notes None recorded. Procedures Surgical History Date Name Laterality Status Provider Name and Address Organization Details Recorded Time leg repair completed YAHAIRA Caputo ptgertrudis [facility] 11/19/2022 15:34:22 Imaging Results None recorded. [...] [Score] - Reported Respiratory rate Oxygen saturation Heart rate Body temperature Systolic And Diastolic Provider Name and Address Organization Details Last Updated DateTime 3 162.56 cm 30.9 kg/m2 41683.6 3 g 8 16 /min 100 % 64 /min 98.4 [degF] 146/92 mm[Hg] YAHAIRA Headley [facility] 3 15:35:46 Social History Question Answer Notes LastModified by Organizat ion Details LastModified Time Tobacco Smoking Status Never Smoker [facility] - [facility] 11/19/2022 15:33:32 Have You Recently Traveled Abroad? No [email or web address] Information not available 11/19/2022 Sex: Unknown Functional Status Question Answer Note LastModified by Organizat ion Details LastModified Time Do you use any illicit or recreational drugs? No [email or web address] Information not available 11/19/2022 Do you or have you ever used any other forms of tobacco or nicotine? No [email or web address] Information not available 11/19/2022 What is your level of alcohol consumption? Occasional [email or web address] Information not available 11/19/2022 Mental Status None [...] ICD10 Code Diagnosis IMO Codes Diagnosis Note [id number] [address] [place] [address] 11/26/2016 18:02:12 11/26/2016 18:37:01 [id number] [address] [place] [address] 09/09/2015 11:19:17 09/09/2015 12:08:15 [id number] [address] [place] [address] 10/07/2016 16:32:08 10/07/2016 17:01:53 [id number] [address] [place] [address] 03/14/2015 13:48:44 03/14/2015 14:17:23 [id number] [address] [facility] [place] [address] 09/16/2015 16:57:03 09/16/2015 18:17:33 [id number] Tommie Khoury, ADDIE [address] [facility] [address] [facility] [place] [address] 11/19/2022 15:25:26 11/19/2022 16:23:30 Cellulitis of toe of right foot [id number] L03.031 follow up with staff sonographer . seem like valgus deformity of right [...] He ather Auger 11/19/2022 1 [place] B[place]: [employer] [facility] Amanda E Auger [id number] Amanda Auger 11/19/2022 2 [place] Amanda E Auger [id number] Amanda Auger Notes Date Note Type Note [...] pt, patient reportsnone. Tommie Khoury NP [address] [place], [address], [place] - [facility] 11/23/2022 08:42:23 OBGyn Episode No OBEpisode recorded.
--- OUTSIDE RECORDS SUMMARY | 2025-03-21 20:23 | XMS_ITS | Clinical Summary ---
Author Organization [facility] Address [address] [address] Phone Care Team Providers Care Ferruler Name Role Phone Unavailable Primary Care Provider [...] file Insurance MEDICARE PART A & B [facility] MEDIC[facility] PART [facility] & [facility] & B [facility] MEDICARE PART A & B Member Subscriber Plan / Payer (Ef fective 2003-Present) Name:Amanda Thakur Member ID:[id number] Relation to Subscriber:Self Name:Amanda Thakur Subscriber ID:[id number] Payer ID:[id number] Group ID:Not on file Type:Medicare Address: [employer] [address] [facility] B Member Subscriber Plan / Payer (Ef fective 2003-Present) Name:Amanda Thakur Member ID:[id number] Relation to Subscriber:Self Name:Amanda Thakur Subscriber ID:[id number] Payer ID:[id number] Group ID:Not on file Type:Medicare Address: [employer] [address] [place] [phone] [place] A [place] B Member Subscriber Plan / Payer (Ef fective 2003-Present) Name:Amanda Thakur Member ID:[id number] Relation to Subscriber:Self Name:Amanda Thakur Subscriber ID:[id number] Payer ID:[id number] Group ID:Not on file Type:Medicare Address: [facility] [employer] [facility] [address] [place] [phone] [facility] [place] [phone] Additional Source Comments The information contained in this document represents components of the legal health record. It is not the complete legal health record.[facility]
--- OUTSIDE RECORDS SUMMARY | 2025-03-21 20:23 | XMS_ITS | Clinical Summary ---
Author Organization [facility] it Address [address] [place] [address] Care Team Providers Care Waste Water Operator Name Role Phone Marisa Cardenas MD Primary Care Provider [phone] Surgical History Surgery Date Site/Laterality Comments OTHER [...] on file Sexual Orientation Not on file Last Filed Vital Signs Vital Sign Reading [...] age to complete this topic Care Teams Waste Water Operator Relationship Specialty Start Date End Date Marisa Cardenas MD [facility] [place] [phone] PCP - General 11/12/23
== END 2025-03-21 15:54 | disposition home or self-care (01) ==
LOC: HO.HPODS 15:26
PROVIDERS: PCP Internal Medicine; Visit Provider Student in an Organized Health Care Education/Training Program
DX: S93.402A Sprain of unspecified ligament of left ankle, initial encounter (principal); S93.602A Unspecified sprain of left foot, initial encounter; M72.2 Plantar fascial fibromatosis; M79.672 Pain in left foot; M25.572 Pain in left ankle and joints of left foot; S99.912A Unspecified injury of left ankle, initial encounter
CPT/HCPCS: 99214

== ENCOUNTER → 2025-03-21 15:25 | Outpatient (BNVA) | payer OTHER, SELFPAY | PROVIDERS: PCP Internal Medicine; Visit Provider Student in an Organized Health Care Education/Training Program | DX: S93.402A Sprain of unspecified ligament of left ankle, initial encounter (principal); S93.602A Unspecified sprain of left foot, initial encounter; M72.2 Plantar fascial fibromatosis; X58.XXXA Exposure to other specified factors, initial encounter; Y93.9 Activity, unspecified; Y92.9 Unspecified place or not applicable; Y99.9 Unspecified external cause status | CPT/HCPCS: 99212 ==